=== PATIENT | male | born 1965 | race Caucasian/White ===

== ENCOUNTER 2017-02-28 23:07 | Emergency (ER) | payer MEDICAID ==
[2017-02-28 23:17] VITALS: BP 110/70
[2017-02-28] MEDS ORDERED: KETOROLAC TROMETHAMINE 60 MG/2 ML SDV IM ONE (23:47)
[2017-02-28] MEDS ORDERED: ONDANSETRON ODT 4 MG TAB (6 TAB/DSPK) PO PRN (23:47)
[2017-02-28] MEDS ORDERED: ONDANSETRON 4 MG TAB.RAPDIS PO ONE (23:47)
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
== END 2017-03-01 00:17 | disposition home or self-care (01) ==
LOC: ER 23:07
DX: M25.512 Pain in left shoulder (principal)
CPT/HCPCS: 99283; S0119

== ENCOUNTER 2018-10-06 21:37 | Emergency (ER) | payer MEDICAID ==
--- NOTE | 2018-10-07 00:07 | ER Document Report ---
ED Neck/Back Problem - General Chief Complaint: Neck and Upper Back Pain Stated Complaint: UPPER BACK PAIN Time Seen by Provider: 10/06/18 23:49 Notes: Patient is a 53-year-old male that comes to the emergency department for chief complaint of pain in his neck and upper back. He states that he was helping load a trailer when a large piece of debris came off of the trailer, he tried to catch and then lifted the debris, he states he felt a sharp pain in his neck and upper back when he did this, he states that this occurred yesterday. He states since that time he has been progressively sore. He denies any numbness or weakness, denies incontinence or urinary retention, denies any other injuries or complaints. Past medical history of type 2 diabetes, hypertension, hyperlipidemia. TRAVEL OUTSIDE OF THE [place] IN LAST 30 DAYS: No - Related Data Allergies/Adverse Reactions: Penicillins Adverse Reaction (Verified 02/28/17 23:37) Past Medical History - General Information source: Patient - Social History Smoking Status: Never Smoker Drug Abuse: None Lives with: Family Family History: Reviewed & Not Pertinent - Past Medical History Cardiac Medical History: Reports: Hx Hypertension Renal/ Medical History: Reports: Hx Kidney Stones. Denies: Hx Peritoneal Dialysis Musculoskeletal Medical History: Reports Hx Arthritis Past Surgical History: Reports: Hx Cholecystectomy, Hx Orthopedic Surgery - right shoulder - Immunizations Hx Diphtheria, Pertussis, Tetanus Vaccination: - unknown Review of Systems - Review of Systems Constitutional: No symptoms reported EENT: No symptoms reported Cardiovascular: No symptoms reported Respiratory: No symptoms reported Gastrointestinal: No symptoms reported Genitourinary: No symptoms reported Male Genitourinary: No symptoms reported Musculoskeletal: See HPI Skin: No symptoms reported Hematologic/Lymphatic: No symptoms reported Neurological/Psychological: No symptoms reported Physical Exam - Vital signs Vitals: Temp Pulse Resp BP Pulse Ox 98.1 F 87 16 169/100 H 97 10/06/18 22:26 10/06/18 22:26 10/06/18 22:26 10/06/18 22:26 10/06/18 22:26 - Notes Notes: GENERAL: Alert, interacts well, moves very stiffly and pivots to walk HEAD: Normocephalic, atraumatic. EYES: Pupils equal, round, and reactive to light. Extraocular movements intact. ENT: Oral mucosa moist, tongue midline. Oropharynx unremarkable. Airway patent. Nares patent, no nasal septal hematoma, TM's intact. NECK: Full range of motion. Supple. Trachea midline. LUNGS: Clear to auscultation bilaterally, no wheezes, rales, or rhonchi. No respiratory distress. HEART: Regular rate and rhythm. No murmur ABDOMEN: Soft, non-tender. Non-distended. Bowel sounds present in all 4 quadrants. GENITOURINARY: Deferred EXTREMITIES: Moves all 4 extremities spontaneously. No edema, normal radial and dorsalis pedis pulses bilaterally. No cyanosis. BACK: Pain over the neck generally including the midline, normal strength, normal distal neurovascular exam, has trouble raising the arms above the head because of pain in the neck/upper back. No saddle anesthesia, no signs of trauma, normal back exam otherwise. NEUROLOGICAL: Alert and oriented x3. Normal speech. [cranial nerves II through XII grossly intact]. PSYCH: Normal affect, normal mood. SKIN: Warm, dry, normal turgor. No rashes or lesions noted. Course - Re-evaluation Re-evalutation: Patient with stiff neck, limited lateral range of motion, pain over the paracervical musculature, remaining back is unremarkable. CT of the neck was performed and unremarkable with no acute findings. Patient has no neurological deficits. Suspect this is bad muscle spasm only. Provided with medications, discussed expectations, follow-up, and return precautions. Patient states understanding and agreement. - Vital Signs Vital signs: Temp Pulse Resp BP Pulse Ox 98.1 F 87 16 169/100 H 97 10/06/18 22:26 10/06/18 22:26 10/06/18 22:26 10/06/18 22:26 10/06/18 22:26 Discharge - Discharge Clinical Impression: Neck pain, Upper back pain, Muscle spasm Condition: Stable Disposition: HOME, SELF-CARE Additional Instructions: The CAT scan shows no concerning abnormality. You will be continually increasingly sore and stiff, medication as prescribed, do not combine with alcohol or other sedating medication. Apply heat to your neck and upper back, do gentle stretches, and rest. Symptoms should gradually resolve. Follow-up with primary care. Return if you worsen including numbness, inability to urinate, loss of bowel control, fever of 100.4 or greater, or any other concerning or worsening symptoms. Prescriptions: Diazepam [Valium 5 mg Tablet] 1 - 2 mg PO TID PRN #15 tablet PRN Reason: Forms: Elevated Blood Pressure
--- NOTE | 2018-10-07 01:17 | RADIOLOGY REPORT (SQ) ---
EXAM DESCRIPTION: CT CERVICAL SPINE WITHOUT IV CONTRAST COMPLETED DATE/TME: 10/07/2018 00:00 CLINICAL HISTORY: 53 years, Male, neck pain/injury This exam was performed according to our departmental dose-optimization program which includes automated exposure control, adjustment of the mA and/or kVp according to patient size and/or use of iterative reconstruction technique where applicable. FINDINGS: Vertebral body heights are intact. Alignment is intact. No subluxation. No significant prevertebral soft tissue swelling. Mild degenerative changes from C4 through C7. Facets are normally aligned. Odontoid process is intact. IMPRESSION: No fracture or subluxation.
[2018-10-07] MEDS ORDERED: HYDROCODONE/ACETAMINOPHEN 5-325 MG (6 TAB/ER DISP) PO PRN (01:26)
[2018-10-07 02:38] VITALS: BP 168/100
== END 2018-10-07 01:40 | disposition home or self-care (01) ==
LOC: ER 21:37
DX: M54.2 Cervicalgia (principal); M54.6 Pain in thoracic spine; M62.830 Muscle spasm of back; E11.9 Type 2 diabetes mellitus without complications; I10 Essential (primary) hypertension; E78.5 Hyperlipidemia, unspecified; Z88.0 Allergy status to penicillin; M19.90 Unspecified osteoarthritis, unspecified site; Z87.442 Personal history of urinary calculi; X50.0XXA Overexertion from strenuous movement or load, initial encounter; Y92.9 Unspecified place or not applicable
CPT/HCPCS: 72125; 99283

== ENCOUNTER 2019-04-13 09:11 | Day surgery (SDC) | payer MEDICAID ==
[~2019-04-13 09:11] MED LIST: PROPOFOL INJ 200 MG/20 ML VIAL IV ONE
[2019-04-13] MEDS ORDERED: PROPOFOL INJ 200 MG/20 ML VIAL IV ONE ×2 (11:17→11:30)
[2019-04-13 12:27] VITALS: BP 138/88
--- NOTE | 2019-04-13 14:35 | Operative Report ---
Operative Report DATE OF SURGERY: 04/13/19 Operative Report: The risks, benefits and alternatives of the procedure including the risk of bleeding, perforation requiring surgery have been explained to the patient in detail and informed consent has been obtained. The patient is placed in a left lateral decubital position. Timeout was called. Propofol medication is administered. Rectal examination is done which did not reveal any masses, tears or fissures. An Olympus videoscope was introduced into the patient's rectum. The scope was then carefully advanced all the way to the cecum. The cecum was identified by the usual anatomical landmarks including the ileocecal valve as well as the appendiceal office. Photodocumentation is obtained. The scope was then sequentially pulled back via the various segments of the colon including the ascending colon, hepatic flexure, transverse colon, splenic flexure, desc ending colon and finally into the rectosigmoid portions of the colon. Retroflexion maneuvers performed. PREOPERATIVE DIAGNOSIS: Colorectal cancer screening POSTOPERATIVE DIAGNOSIS: Redundancy of the colon. Ascending colon polyp was removed via biopsy forceps. Internal hemorrhoids OPERATION: Colonoscopy with biopsy SURGEON: COLE QUIROS ANESTHESIA: LMAC TISSUE REMOVED OR ALTERED: As noted above. COMPLICATIONS: None. ESTIMATED BLOOD LOSS: None. INTRAOPERATIVE FINDINGS: As noted above. PROCEDURE: Patient tolerated the procedure well. No immediate postprocedure complications are noted. Patient is discharged in good condition. Discharge date 04/13/2019. Discharge diet: Regular. Discharge activity: Regular. 2 to 3-week follow-up to discuss findings. Patient is instructed to call the office or proceed to the emergency room should there be any further questions. 3 to 5-year surveillance colonoscopy.
== END 2019-04-13 12:15 | disposition home or self-care (01) ==
LOC: END 09:11
PROVIDERS: ATTEND Internal Medicine Gastroenterology
DX: Z12.11 Encounter for screening for malignant neoplasm of colon (principal); D12.2 Benign neoplasm of ascending colon; K64.8 Other hemorrhoids; E78.5 Hyperlipidemia, unspecified; I10 Essential (primary) hypertension; F17.210 Nicotine dependence, cigarettes, uncomplicated; J45.909 Unspecified asthma, uncomplicated; J45.20 Mild intermittent asthma, uncomplicated
CPT/HCPCS: 45380; 88305 ×2; 00811; J2704; 811

== ENCOUNTER 2019-05-31 20:31 | Emergency (ER) | payer MEDICAID ==
[2019-05-31 20:43] VITALS: BP 158/85
== END 2019-05-31 22:48 | disposition left against medical advice (07) ==
LOC: ER 20:31
DX: Z53.21 Procedure and treatment not carried out due to patient leaving prior to being seen by health care provider (principal)

== ENCOUNTER 2019-06-27 20:33 | Emergency (ER) | payer MEDICAID ==
[2019-06-27] MEDS ORDERED: RINGERS SOLUTION,LACTATED 1,000 ML IV ONE ×2 (21:04→23:40)
--- NOTE | 2019-06-27 21:04 | ER Document Report ---
ED General - General Stated Complaint: BACK PAIN Time Seen by Provider: 06/27/19 20:54 Primary Care Provider: SHARLENE RAGLAND MD [EMERITUS] - 06/29/19 JV ALEXANDER MD [NO LOCAL MD] - Follow up as needed Mode of Arrival: Medic Information source: Patient, Emergency Med Personnel Notes: 53-year-old male with hypertension, arthritis, schizophrenia, PTSD presents via EMS from home with complaints of upper back pain, palpitations, dizziness. Patient states that just prior to arrival he was eating dinner when he developed pain between his shoulder blades and dizziness which he describes as feeling like he is going to pass out. Patient also reports having palpitations. Patient has had a new medication added for nightmares and hypertension recently. This is prazosin. he states he initially thought he was having indigestion but the pain persisted. Patient reports feeling nauseous yesterday but denies any nausea, vomiting, chest pain, shortness of breath, abdominal pain, diaphoresis, diarrhea, recent illness today. EMS reports that the patient was hypotensive upon their arrival. Patient admits to tobacco use, occasional alcohol use. TRAVEL OUTSIDE OF THE [place] IN LAST 30 DAYS: No - HPI Onset: Just prior to arrival Onset/Duration: Sudden Quality of pain: Throbbing Severity: Moderate Pain Level: 2 Associated symptoms: Nausea, Other - Dizziness. denies: Chest pain, Diarrhea, Fever, Headache, Vomiting, Shortness of breath, Sore throat, Sweating, Weakness Exacerbated by: Denies Relieved by: Denies Similar symptoms previously: Yes Recently seen / treated by doctor: No - Related Data Allergies/Adverse Reactions: Penicillins Adverse Reaction (Verified 04/13/19 09:27) Past Medical History - General Information source: Patient, Emergency Med Personnel, [facility] Records - Social History Smoking Status: Current Every Day Smoker Cigarette use (# per day): Yes - 15 Smoking Education Provided: Yes - Smoking cessation counseling was provided for 4 minutes at the bedside Frequency of alcohol use: Occasional Drug Abuse: None Lives with: Family Family History: Reviewed & Not Pertinent Patient has suicidal ideation: No Patient has homicidal ideation: No - Past Medical History Cardiac Medical History: Reports: Hx Hypertension Denies: Hx Coronary Artery Disease, Hx Heart Attack Pulmonary Medical History: Reports: Hx Pneumonia Denies: Hx Asthma, Hx Bronchitis, Hx COPD Neurological Medical History: Denies: Hx Cerebrovascular Accident, Hx Seizures Renal/ Medical History: Reports: Hx Kidney Stones. Denies: Hx Peritoneal Dialysis Musculoskeletal Medical History: Reports Hx Arthritis Past Surgical History: Reports: Hx Cholecystectomy, Hx Orthopedic Surgery - right shoulder - Immunizations Hx Diphtheria, Pertussis, Tetanus Vaccination: Yes - unknown Hx Pneumococcal Vaccination: 11/04/18 Review of Systems - Review of Systems Constitutional: denies: Malaise, Weakness, Weight loss, Recent illness EENT: denies: Blurred vision, Difficulty swallowing Cardiovascular: Palpitations, Dizziness Physical Exam - Vital signs Vitals: Temp 98.7 F 06/27/19 20:35 - Notes Notes: PHYSICAL EXAMINATION: GENERAL: Well-appearing, well-nourished and in no acute distress. HEAD: Atraumatic, normocephalic. EYES: Pupils equal round and reactive to light, extraocular movements intact, sclera anicteric, conjunctiva are normal. ENT: Nares patent, oropharynx clear without exudates. Moist mucous membranes. NECK: Normal range of motion, supple without lymphadenopathy LUNGS: Breath sounds clear to auscultation bilaterally and equal. No wheezes rales or rhonchi. HEART: Tachycardic, regular rhythm, no murmurs. weak radial pulse bilaterally ABDOMEN: Soft, nontender, nondistended abdomen. No guarding, no rebound. No masses appreciated. Musculoskeletal: Normal range of motion, no pitting or edema. No cyanosis. NEUROLOGICAL: Cranial nerves grossly intact. Normal speech, normal gait. Normal sensory, motor exams PSYCH: Normal mood, normal affect. SKIN: Warm, Dry, normal turgor, no rashes or lesions noted. Course - Re-evaluation Re-evalutation: Laboratory 06/27/19 06/27/19 06/27/19 20:45 20:45 20:45 WBC 12.0 H RBC 5.25 Hgb 14.6 Hct 44.5 MCV 85 MCH 27.8 MCHC 32.7 RDW 15.0 H Plt Count 255 Lymph % (Auto) 13.1 Willacy % (Auto) 4.7 Eos % (Auto) 0.9 Baso % (Auto) 0.5 Absolute Neuts (auto) 9.7 H Absolute Lymphs (auto) 1.6 Absolute Monos (auto) 0.6 Absolute Eos (auto) 0.1 Absolute Basos (auto) 0.1 Seg Neutrophils % 80.8 H PT 14.2 INR 1.10 VBG pH VBG pCO2 VBG HCO3 VBG Base Excess Sodium 135.9 L Potassium 3.7 Chloride 101 Carbon Dioxide 25 Anion Gap 10 BUN 10 Creatinine 0.97 Est GFR ( Amer) > 60 Est GFR (MDRD) Non-Af > 60 Glucose 166 H Lactic Acid Calcium 9.0 Magnesium 1.7 Total Bilirubin 0.4 Direct Bilirubin 0.3 Neonat Total Bilirubin Not Reportable Neonat Direct Bilirubin Not Reportable Neonat Indirect Bili Not Reportable AST 21 ALT 21 Alkaline Phosphatase 57 Creatine Kinase 35 L CK-MB (CK-2) Troponin I NT-Pro-B Natriuret Pep Total Protein 6.3 Albumin 3.6 Urine Color Urine Appearance Urine pH Ur Specific Lynn Urine Protein Urine Glucose (UA) Urine Ketones Urine Blood Urine Nitrite Urine Bilirubin Urine Urobilinogen Ur Leukocyte Esterase Urine WBC (Auto) Urine RBC (Auto) U Hyaline Cast (Auto) Squamous Epi Cells Auto Urine Mucus (Auto) Urine Ascorbic Acid Urine Opiates Screen Urine Methadone Screen Ur Barbiturates Screen Ur Phencyclidine Scrn Ur Amphetamines Screen U Benzodiazepines Scrn Urine Cocaine Screen U Marijuana (THC) Screen Serum Alcohol < 10 06/27/19 06/27/19 06/27/19 20:45 20:45 21:08 WBC RBC Hgb Hct MCV MCH MCHC RDW Plt Count Lymph % (Auto) Willacy % (Auto) Eos % (Auto) Baso % (Auto) Absolute Neuts (auto) Absolute Lymphs (auto) Absolute Monos (auto) Absolute Eos (auto) Absolute Basos (auto) Seg Neutrophils % PT INR VBG pH 7.37 VBG pCO2 49.6 VBG HCO3 27.9 VBG Base Excess 1.7 Sodium Potassium Chloride Carbon Dioxide Anion Gap BUN Creatinine Est GFR ( Amer) Est GFR (MDRD) Non-Af Glucose Lactic Acid 3.8 H Calcium Magnesium Total Bilirubin Direct Bilirubin Neonat Total Bilirubin Neonat Direct Bilirubin Neonat Indirect Bili AST ALT Alkaline Phosphatase Creatine Kinase CK-MB (CK-2) 0.37 Troponin I < 0.012 NT-Pro-B Natriuret Pep 47 Total Protein Albumin Urine Color Urine Appearance Urine pH Ur Specific Lynn Urine Protein Urine Glucose (UA) Urine Ketones Urine Blood Urine Nitrite Urine Bilirubin Urine Urobilinogen Ur Leukocyte Esterase Urine WBC (Auto) Urine RBC (Auto) U Hyaline Cast (Auto) Squamous Epi Cells Auto Urine Mucus (Auto) Urine Ascorbic Acid Urine Opiates Screen Urine Methadone Screen Ur Barbiturates Screen Ur Phencyclidine Scrn Ur Amphetamines Screen U Benzodiazepines Scrn Urine Cocaine Screen U Marijuana (THC) Screen Serum Alcohol 06/27/19 06/27/19 06/27/19 22:28 22:28 23:40 WBC RBC Hgb Hct MCV MCH MCHC RDW Plt Count Lymph % (Auto) Willacy % (Auto) Eos % (Auto) Baso % (Auto) Absolute Neuts (auto) Absolute Lymphs (auto) Absolute Monos (auto) Absolute Eos (auto) Absolute Basos (auto) Seg Neutrophils % PT INR VBG pH VBG pCO2 VBG HCO3 VBG Base Excess Sodium Potassium Chloride Carbon Dioxide Anion Gap BUN Creatinine Est GFR ( Amer) Est GFR (MDRD) Non-Af Glucose Lactic Acid 1.2 Calcium Magnesium Total Bilirubin Direct Bilirubin Neonat Total Bilirubin Neonat Direct Bilirubin Neonat Indirect Bili AST ALT Alkaline Phosphatase Creatine Kinase CK-MB (CK-2) Troponin I NT-Pro-B Natriuret Pep Total Protein Albumin Urine Color YELLOW Urine Appearance CLEAR Urine pH 7.0 Ur Specific Lynn 1.019 Urine Protein 30 H Urine Glucose (UA) NEGATIVE Urine Ketones NEGATIVE Urine Blood NEGATIVE Urine Nitrite NEGATIVE Urine Bilirubin NEGATIVE Urine Urobilinogen NEGATIVE Ur Leukocyte Esterase NEGATIVE Urine WBC (Auto) 2 Urine RBC (Auto) 0 U Hyaline Cast (Auto) 10 Squamous Epi Cells Auto <1 Urine Mucus (Auto) RARE Urine Ascorbic Acid NEGATIVE Urine Opiates Screen UNCONFIRMED POSITIVE Urine Methadone Screen NEGATIVE Ur Barbiturates Screen NEGATIVE Ur Phencyclidine Scrn NEGATIVE Ur Amphetamines Screen NEGATIVE U Benzodiazepines Scrn UNCONFIRMED POSITIVE Urine Cocaine Screen NEGATIVE U Marijuana (THC) Screen UNCONFIRMED POSITIVE Serum Alcohol 06/27/19 23:55 WBC RBC Hgb Hct MCV MCH MCHC RDW Plt Count Lymph % (Auto) Willacy % (Auto) Eos % (Auto) Baso % (Auto) Absolute Neuts (auto) Absolute Lymphs (auto) Absolute Monos (auto) Absolute Eos (auto) Absolute Basos (auto) Seg Neutrophils % PT INR VBG pH VBG pCO2 VBG HCO3 VBG Base Excess Sodium Potassium Chloride Carbon Dioxide Anion Gap BUN Creatinine Est GFR ( Amer) Est GFR (MDRD) Non-Af Glucose Lactic Acid Calcium Magnesium Total Bilirubin Direct Bilirubin Neonat Total Bilirubin Neonat Direct Bilirubin Neonat Indirect Bili AST ALT Alkaline Phosphatase Creatine Kinase CK-MB (CK-2) Troponin I < 0.012 NT-Pro-B Natriuret Pep Total Protein Albumin Urine Color Urine Appearance Urine pH Ur Specific Lynn Urine Protein Urine Glucose (UA) Urine Ketones Urine Blood Urine Nitrite Urine Bilirubin Urine Urobilinogen Ur Leukocyte Esterase Urine WBC (Auto) Urine RBC (Auto) U Hyaline Cast (Auto) Squamous Epi Cells Auto Urine Mucus (Auto) Urine Ascorbic Acid Urine Opiates Screen Urine Methadone Screen Ur Barbiturates Screen Ur Phencyclidine Scrn Ur Amphetamines Screen U Benzodiazepines Scrn Urine Cocaine Screen U Marijuana (THC) Screen Serum Alcohol Chest X-Ray 06/27/19 20:54 IMPRESSION: No acute abnormality is identified. Abdomen/Pelvis CTA 06/27/19 20:55 IMPRESSION: Negative for thoracic or abdominal aortic aneurysm or dissection. Perihilar groundglass opacities suggesting minor pneumonitis. Descending/sigmoid colon diverticulosis without CT evidence for diverticulitis TECHNICAL DOCUMENTATION: Quality ID # 436: Final reports with documentation of one or more dose reduction techniques (e.g., Automated exposure control, adjustment of the mA and/or kV according to patient size, use of iterative reconstruction technique) copyright 2010 [employer]- All Rights Reserved Chest/Abdomen CTA 06/27/19 20:55 IMPRESSION: Negative for thoracic or abdominal aortic aneurysm or dissection. Perihilar groundglass opacities suggesting minor pneumonitis. Descending/sigmoid colon diverticulosis without CT evidence for diverticulitis TECHNICAL DOCUMENTATION: Quality ID # 436: Final reports with documentation of one or more dose reduction techniques (e.g., Automated exposure control, adjustment of the mA and/or kV according to patient size, use of iterative reconstruction technique) copyright 2010 [employer]- All Rights Reserved Temp Pulse Resp BP Pulse Ox 98.7 F 18 128/73 H 96 06/27/19 20:35 06/28/19 01:31 06/28/19 01:31 06/28/19 01:31 53-year-old male presents via EMS with complaint of upper back pain, dizziness and palpitations that started just prior to arrival. EMS reports patient was hypotensive with a blood pressure of 70/50 upon their arrival. Patient did receive fentanyl prior to arrival to the emergency department. Blood pressure upon arrival is 92/50. IV fluids were administered and patient's blood pressure did improve. CBC is without leukocytosis or anemia. CMP shows hyperglycemia without evidence of DKA. Cardiac enzymes including delta troponin were within normal limits. Urine drug screen is positive for benzodiazepines, marijuana, opiates. Patient adamantly denies history of benzodiazepine use. Patient's lactate was 3.8 this resolved and is 1.2 prior to discharge. CTA of the chest abdomen and pelvis is significant for pneumonitis. No evidence of dissection, PE. 06/28/19 01:15 Family now at the bedside and brother states that he believes that his brother may have accidentally taken either too much of his own medication or accidentally took 1 of his parents medication. He states that there is over 30 bottles of medications between the 3 of them and that the patient is in charge of them. Patient reports improvement of his pain. Repeat lactate within normal limits. Patient is on 3 different blood pressure medications. He was advised to hold these medications until he had a blood pressure reading with a systolic blood pressure over 140. Patient also advised to follow-up with his primary care physician for review of his medications. He states that his psychiatrist gave him a medication for nightmares but also lowers blood pressure. I think his hypotension is likely due to either too many blood pressure medications or medication error. Patient is orthostatic negative. 06/28/19 01:27 Repeat blood pressure upon discharge is 118/60. 06/28/19 03:52 Patient's new medication prazosin has the adverse effects of dizziness, palpitations and hypotension. This added to his 2 other blood pressure medications and possible accidental ingestion of benzodiazepine is likely the patient's cause for hypotension and dizziness. Patient is ambulating without difficulty. He is comfortable with discharge home. He was provided copies of his imaging and lab work that were performed today. Advised to follow-up with his primary care physician on Saturday and to hold his blood pressure medications for any systolic blood pressure lower than 140. Patient was evaluated and treated as appropriate for the patient's presenting symptoms and complaint, with consideration of any critical or life threatening conditions that may be associated with their obtained history and exam as noted above. All results were discussed with patient and his family who is at the bedside. Patient provided the opportunity to ask questions, and express concerns. Patient was educated on treatments based on their presumed diagnosis as noted above. At this time we will discharge the patient with return precautions and follow-up recommendations. Verbal discharge instructions given a the bedside. Medication warnings reviewed. Patient is in agreement with this plan and has verbalized understanding of return precautions. After careful consideration I feel that that patient can be safely discharged from the emergency department, they were advised to followup with a primary care physician in 2-3 days. Dictation on this chart was performed using voice recognition software and may result in unintended grammatical, spelling, syntax or errors. - Vital Signs Vital signs: Temp Pulse Resp BP Pulse Ox 98.7 F 18 128/73 H 96 06/27/19 20:35 06/28/19 01:31 06/28/19 01:31 06/28/19 01:31 - Laboratory Result Diagrams: 06/27/19 20:45 06/27/19 20:45 Laboratory results interpreted by me: 06/27/19 06/27/19 06/27/19 20:45 20:45 20:45 WBC 12.0 H RDW 15.0 H Absolute Neuts (auto) 9.7 H Seg Neutrophils % 80.8 H Sodium 135.9 L Glucose 166 H Lactic Acid 3.8 H Creatine Kinase 35 L Urine Protein 06/27/19 22:28 WBC RDW Absolute Neuts (auto) Seg Neutrophils % Sodium Glucose Lactic Acid Creatine Kinase Urine Protein 30 H - Diagnostic Test Radiology reviewed: Image reviewed, Reports reviewed - EKG Interpretation by Me EKG shows normal: Sinus rhythm Rate: Tachycardia Rhythm: NSR - Prolonged QTC Discharge - Discharge Clinical Impression: Pneumonitis, Tobacco use Hypotension Qualifiers: Hypotension type: hypotension due to drug Qualified Code(s): I95.2 - H ypotension due to drugs Back pain Qualifiers: Back pain location: thoracic back pain Chronicity: acute Back pain laterality: bilateral Qualified Code(s): M54.6 - Pain in thoracic spine Medication administered in error Qualifiers: Encounter type: initial encounter Injury intent: accidental or unintentional Qualified Code(s): T50.901A - Poisoning by unspecified drugs, medicaments and biological substances, accidental (unintentional), initial encounter Condition: Good Disposition: HOME, SELF-CARE Instructions: Dizziness ([facility]), Muscle Strain ([facility]), Palpitations (Irregular or Rapid Heartrate) ([facility]) Additional Instructions: You are on 3 different medications that can lower your blood pressure. Please hold any blood pressure medication unless you have a systolic blood pressure (top number) over 140. Please return to the emergency department if you experience chest pain, shortness of breath, dizziness or any other symptoms concerning to you. The medications I am speaking of our your prazosin, hydrochlorothiazide and telmisartan. Follow up with your [id number] hours for further care or return to the ED IMMEDIATELY if symptoms worsen or you have any concerns. If you cannot afford to follow up with your primary care physician a list of low cost clinics have been provided at the end of your discharge papers as well. Most prescribed medications have multiple side effects. The safest thing to do is when filling your prescription speak to your pharmacist regarding possible interactions with your normal home medications and over the counter medications such as Ibuprofen, Tylenol, Benadryl. If you experience any symptoms that cause you discomfort or concern you should discontinue the medication immediately and return to the emergency room or call your primary care physician. Forms: Smoking Cessation Education Referrals: JV ALEXANDER MD [NO LOCAL MD] - Follow up as needed SHRALENE RAGLAND MD [EMERITUS] - 06/29/19
[2019-06-27 21:10] LABS: ABSOLUTE BASOPHILS # (AUTO) 0.1 10^3/uL (0.0-0.2); ABSOLUTE EOSINOPHILS # (AUTO) 0.1 10^3/uL (0.0-0.6); ABSOLUTE LYMPHOCYTES (AUTO) 1.6 10^3/uL (0.5-4.7); ABSOLUTE MONOCYTES (AUTO) 0.6 10^3/uL (0.1-1.4); ABSOLUTE NEUT (AUTO) 9.7 10^3/uL (1.7-8.2); BASOPHILS % (AUTO) 0.5 % (0-2); EOSINOPHILS % (AUTO) 0.9 % (0-6); HEMATOCRIT 44.5 % (37.9-51.0); HEMOGLOBIN 14.6 g/dL (13.5-17.0); LYMPHOCYTES % (AUTO) 13.1 % (13-45); MEAN CORPUSCULAR HEMOGLOBIN 27.8 pg (27.0-33.4); MEAN CORPUSCULAR HGB CONC 32.7 g/dL (32.0-36.0); MEAN CORPUSCULAR VOLUME 85 fl (80-97); MONOCYTES % (AUTO) 4.7 % (3-13); PLATELET COUNT 255 10^3/uL (150-450); RED BLOOD COUNT 5.25 10^6/uL (4.35-5.55); SEGMENTED NEUTROPHILS % (AUTO) 80.8 % (42-78); TOTAL CELLS COUNTED % (AUTO) 100 %
[2019-06-27 21:16] LABS: PROTHROMBIN TIME 14.2 SEC (11.4-15.4)
[2019-06-27 21:27] LABS: VENOUS BLOOD BASE EXCESS 1.7 mmol/L; VENOUS BLOOD HCO3 27.9 mmol/L (20-32); VENOUS BLOOD PCO2 49.6 mmHg (35-63); VENOUS BLOOD PH 7.37 (7.30-7.42)
[2019-06-27 21:32] LABS: ALBUMIN 3.6 g/dL (3.5-5.0); ALKALINE PHOSPHATASE 57 U/L (38-126); ANION GAP 10 (5-19); ASPARTATE AMINO TRANSFERASE 21 U/L (17-59); BILIRUBIN,DIRECT 0.3 mg/dL (0.0-0.4); BILIRUBIN,TOTAL 0.4 mg/dL (0.2-1.3); BLOOD UREA NITROGEN 10 mg/dL (7-20); CARBON DIOXIDE 25 mmol/L (22-30); CHLORIDE 101 mmol/L (98-107); CREATINE KINASE 35 U/L (55-170); GLUCOSE 166 mg/dL (75-110); POTASSIUM 3.7 mmol/L (3.6-5.0); TOTAL PROTEIN 6.3 g/dL (6.3-8.2)
[2019-06-27 21:33] LABS: ALCOHOL < 10 mg/dL (NONE DETECTED)
[2019-06-27 21:42] LABS: CREATINE KINASE MB 0.37 ng/mL (<4.55); NT PRO BNP 47 pg/mL (5-900); TROPONIN I < 0.012 ng/mL
--- NOTE | 2019-06-27 22:11 | RADIOLOGY REPORT (SQ) ---
EXAM DESCRIPTION: XR CHEST 1 VIEW COMPLETED DATE/TME: 06/27/2019 20:54 CLINICAL HISTORY: 53 years Male Upper back pain history of hypertension COMPARISON: None. FINDINGS: The cardiomediastinal silhouette appears unremarkable. No consolidating infiltrates or pleural effusions. No pneumothorax. IMPRESSION: No acute abnormality is identified.
--- NOTE | 2019-06-27 22:52 | RADIOLOGY REPORT (SQ) ---
EXAM DESCRIPTION: CT ABDOMEN PELVIS WITHOUT THEN WITH IV CONTRAST, CT CHEST ANGIOGRAPHY WITHOUT THEN WITH IV CONTRAST COMPLETED DATE/TME: 06/27/2019 20:55 CLINICAL HISTORY: 53 years, Male, Chest pain, back pain COMPARISON: 06/29/2016 CT abdomen/pelvis TECHNIQUE: [id number] Images stored on PACS. All CT scanners at this facility use dose modulation, iterative reconstruction, and/or weight based dosing when appropriate to reduce radiation dose to as low as reasonably achievable (ALARA). Axial images with coronal and sagittal MIPS reconstructions [facility]: Dose Right [facility]: CareDose [facility]: Dose Right [facility]: Teradose 4D [facility]: Smart [employer] LIMITATIONS: None. FINDINGS: CTA chest: The visualized thyroid gland enhances normally. There is very little opacification of the pulmonary arterial tree. No evidence for large or central pulmonary embolus. Negative for thoracic aortic aneurysm or dissection. No mediastinal or hilar adenopathy. The heart and pericardium are unremarkable. Multiple old left rib fractures. Osseous structures are otherwise grossly intact. No pneumothorax. The visualized airways are patent. Perihilar groundglass opacities bilaterally suggesting minor pneumonitis. No effusion. CTA abdomen/pelvis: Osseous structures of the abdomen/pelvis show degenerative changes of the lumbar spine. Evaluation of solid visceral organs is limited due to phase of contrast. However, the liver, spleen, adrenal glands, pancreas, kidneys are unremarkable. Surgical absence of the gallbladder. The celiac axis, superior mesenteric artery, inferior mesenteric artery are widely patent. Widely patent renal arteries bilaterally. Negative for abdominal aortic aneurysm or dissection. Atheromatous changes of the distal abdominal aorta and common iliac arteries bilaterally. The vessels are otherwise patent. The internal, external iliac arteries are patent. The bilateral common femoral and visualized superficial femoral arteries are patent. Descending and sigmoid colon diverticulosis without CT evidence for diverticulitis. Abundant stool in the colon. Normal appendix. No free air or free fluid. IMPRESSION: Negative for thoracic or abdominal aortic aneurysm or dissection. Perihilar groundglass opacities suggesting minor pneumonitis. Descending/sigmoid colon diverticulosis without CT evidence for diverticulitis TECHNICAL DOCUMENTATION: Quality ID # 436: Final reports with documentation of one or more dose reduction techniques (e.g., Automated exposure control, adjustment of the mA and/or kV according to patient size, use of iterative reconstruction technique) copyright 2011 [employer]- All Rights Reserved
[2019-06-27 23:11] LABS: APPEARANCE,URINE CLEAR; BILIRUBIN,URINE NEGATIVE (NEGATIVE); COLOR,URINE YELLOW; GLUCOSE, URINE NEGATIVE (NEGATIVE); KETONES,URINE NEGATIVE (NEGATIVE); LEUKOCYTE ESTERASE,URINE NEGATIVE (NEGATIVE); NITRITE,URINE NEGATIVE (NEGATIVE); PROTEIN,URINE 30 mg/dL (NEGATIVE); URINE SPECIFIC GRAVITY 1.019; UROBILINOGEN,URINE NEGATIVE mg/dL (<2.0)
[2019-06-27 23:23] LABS: URINE AMPHETAMINES SCREEN NEGATIVE; URINE BARBITURATES SCREEN NEGATIVE; URINE BENZODIAZEPINES SCREEN UNCONFIRMED POSITIVE; URINE COCAINE SCREEN NEGATIVE; URINE MARIJUANA (THC) SCREEN UNCONFIRMED POSITIVE; URINE METHADONE SCREEN NEGATIVE; URINE PHENCYCLIDINE SCREEN NEGATIVE
[2019-06-27] MEDS ORDERED: KETOROLAC TROMETHAMINE INJ/PF 30 MG/1 ML SDV IV ONE (23:53)
[2019-06-28 01:34] VITALS: BP 128/73
--- NOTE | 2019-06-28 09:28 | EKG REPORT ---
SEVERITY:- BORDERLINE ECG - SINUS TACHYCARDIA BORDERLINE PROLONGED QT INTERVAL : Confirmed by: Anna Easton MD 28-Jun-2019 09:28:30
== END 2019-06-28 01:47 | disposition home or self-care (01) ==
LOC: ER 20:33
DX: J18.9 Pneumonia, unspecified organism (principal); T50.901A Poisoning by unspecified drugs, medicaments and biological substances, accidental (unintentional), initial encounter; M54.9 Dorsalgia, unspecified; R42 Dizziness and giddiness; M54.6 Pain in thoracic spine; I95.2 Hypotension due to drugs; X58.XXXA Exposure to other specified factors, initial encounter; F17.210 Nicotine dependence, cigarettes, uncomplicated; I10 Essential (primary) hypertension; Z90.49 Acquired absence of other specified parts of digestive tract; Z87.442 Personal history of urinary calculi
CPT/HCPCS: 93005; 36415; 87040; 87086; 82553; 80307 ×2; 82550; 83735; 85025; 85610; 80053; 81001; 84484; 82803; 83605; 83880; 71045; 71275; 74174; 93010; J1885; J7120 ×2; 96361; 96374; 99285; 99406

== ENCOUNTER 2020-02-21 18:34 | Emergency (ER) | payer MEDICAID ==
--- NOTE | 2020-02-21 18:51 | ER Document Report ---
ED Medical Screen (RME) - General Chief Complaint: Pain All Over Stated Complaint: MUSCLE, JOINT PAIN Primary Care Provider: MARICHUY EVANS PA-C [Primary Care Provider] - Follow up as needed Notes: Patient is a 54-year-old white male with a past medical history of obesity, uncontrolled hypertension and psoriatic arthritis who presents to the emergency department the chief complaint of aches and pains all over in his joints from the arthritis. He does not see a doctor and is not being treated with any medications. He states his been going through a lot of stress lately and has just been feeling really weak and rundown recently. He states he was finally convinced by his family to come today for evaluation. He denies any chest pain or headache. No blurry vision or dizziness. I have treated and performed a rapid initial assessment of this patient. A comprehensive ED assessment and evaluation of the patient, analysis of test results and completion of medical decision making process will be conducted by additional ED providers. PHYSICAL EXAMINATION: GENERAL: Well-appearing, well-nourished and in no acute distress. A&Ox4. Answers questions appropriately. TRAVEL OUTSIDE OF THE [place] IN LAST 30 DAYS: No - Related Data Allergies/Adverse Reactions: Penicillins Adverse Reaction (Verified 04/13/19 09:27) Past Medical History - Past Medical History Cardiac Medical History: Reports: Hx Hypertension Denies: Hx Coronary Artery Disease, Hx Heart Attack Pulmonary Medical History: Reports: Hx Pneumonia Denies: Hx Asthma, Hx Bronchitis, Hx COPD Neurological Medical History: Denies: Hx Cerebrovascular Accident, Hx Seizures Renal/ Medical History: Reports: Hx Kidney Stones. Denies: Hx Peritoneal Dialysis Musculoskeltal Medical History: Reports Hx Arthritis Past Surgical History: Reports: Hx Cholecystectomy, Hx Orthopedic Surgery - right shoulder - Immunizations Hx Diphtheria, Pertussis, Tetanus Vaccination: Yes - unknown Physical Exam - Vital signs Vitals: Temp Pulse Resp BP Pulse Ox 99.3 F 88 18 212/119 H 96 02/21/20 18:39 02/21/20 18:39 02/21/20 18:39 02/21/20 18:39 02/21/20 18:39 Course - Vital Signs Vital signs: Temp Pulse Resp BP Pulse Ox 99.3 F 88 18 212/119 H 96 02/21/20 18:39 02/21/20 18:39 02/21/20 18:39 02/21/20 18:39 02/21/20 18:39 Doctor's Discharge - Discharge Referrals: MARICHUY EVANS PA-C [Primary Care Provider] - Follow up as needed
[2020-02-21 19:31] LABS: ABSOLUTE EOSINOPHILS # (AUTO) 0.1 10^3/uL (0.0-0.6); ABSOLUTE LYMPHOCYTES (AUTO) 1.6 10^3/uL (0.5-4.7); ABSOLUTE MONOCYTES (AUTO) 0.5 10^3/uL (0.1-1.4); ABSOLUTE NEUT (AUTO) 8.8 10^3/uL (1.7-8.2); BASOPHILS % (AUTO) 0.4 % (0-2); EOSINOPHILS % (AUTO) 1.3 % (0-6); HEMATOCRIT 43.6 % (37.9-51.0); LYMPHOCYTES % (AUTO) 14.4 % (13-45); MEAN CORPUSCULAR HGB CONC 34.4 g/dL (32.0-36.0); MEAN CORPUSCULAR VOLUME 84 fl (80-97); MONOCYTES % (AUTO) 4.8 % (3-13); PLATELET COUNT 281 10^3/uL (150-450); RED BLOOD COUNT 5.17 10^6/uL (4.35-5.55); RED CELL DISTRIBUTION WIDTH 14.5 % (11.5-14.0); SEGMENTED NEUTROPHILS % (AUTO) 79.1 % (42-78); TOTAL CELLS COUNTED % (AUTO) 100 %; WHITE BLOOD COUNT 11.1 10^3/uL (4.0-10.5)
[2020-02-21 19:48] LABS: ALKALINE PHOSPHATASE 64 U/L (38-126); ANION GAP 9 (5-19); ASPARTATE AMINO TRANSFERASE 21 U/L (17-59); BILIRUBIN,TOTAL 0.3 mg/dL (0.2-1.3); BLOOD UREA NITROGEN 13 mg/dL (7-20); CALCIUM 9.1 mg/dL (8.4-10.2); CARBON DIOXIDE 25 mmol/L (22-30); CHLORIDE 105 mmol/L (98-107); GLUCOSE 104 mg/dL (75-110); POTASSIUM 3.8 mmol/L (3.6-5.0); TOTAL PROTEIN 7.1 g/dL (6.3-8.2)
[2020-02-21] MEDS ORDERED: IBUPROFEN 600 MG TABLET PO ONE (19:48)
--- NOTE | 2020-02-21 20:23 | ER Document Report ---
ED General - General Chief Complaint: General Weakness Stated Complaint: MUSCLE, JOINT PAIN Time Seen by Provider: 02/21/20 19:23 Primary Care Provider: MARICHUY EVANS PA-C [NO LOCAL MD] - Follow up as needed Notes: HPI: 54-year-old male that presents today stating some increased joint pain for the last few weeks. Patient has bad psoriatic arthritis. He has not seen his primary care physician for an extensive period of time. Patient used to be on immunosuppressive medications but he states his insurance would not allow it and he cannot afford it given that he is on Medicare. Patient on my examination denies any and all fevers, runny nose, congestion, or cough above his baseline "smoker's cough". He denies any chest pain, abdominal pain, calf pain or leg swelling. Patient states he has not taken his blood pressure medications for a few months. He states that because he was on "so many" that he states he was seen in the emergency department 2 months ago secondary to a transient episode of low blood pressure and therefore discontinued his medications. He has not yet followed up with his primary care physician regarding this. He again however denies any chest pain, leg swelling, and also denies any headache or blurry vision. Patient does state however for the last few days that he has just been "very fatigued". ROS: See HPI All other review of systems reviewed and otherwise negative Reviewed vital signs and nursing note as charted by RN. PHYSICAL EXAM: CONSTITUTIONAL: Alert and oriented and responds appropriately to questions. Well-appearing; well-nourished HEAD: Normocephalic; atraumatic EYES: PERRL ENT: Normal nose; no rhinorrhea; moist mucous membranes; pharynx without lesions noted NECK: Supple without meningismus; non-tender; no cervical lymphadenopathy, no masses CARD: Regular rate and rhythm; no murmurs; symmetric distal pulses RESP: Normal chest excursion without splinting or tachypnea; breath sounds clear and equal bilaterally; no wheezes, no rhonchi, no rales ABD/GI: Normal bowel sounds; non-distended; soft, non-tender BACK: The back appears normal and is non-tender to palpation EXT: Normal ROM in all joints; patient has obvious psoriatic lesions to bilateral elbows, and the knuckles of the hands. No obvious acute swollen or erythematous joints SKIN: See above NEURO: CN 2-12 intact; 5/5 bilateral upper and lower extremity strength with sensation intact to light touch PSYCH: The patient's mood and manner are appropriate. Grooming and personal hygiene are appropriate. TRAVEL OUTSIDE OF THE [place] IN LAST 30 DAYS: No - Related Data Allergies/Adverse Reactions: Penicillins Adverse Reaction (Verified 04/13/19 09:27) Past Medical History - Social History Smoking Status: Current Every Day Smoker Family History: Reviewed & Not Pertinent Patient has suicidal ideation: No Patient has homicidal ideation: No - Past Medical History Cardiac Medical History: Reports: Hx Hypertension Denies: Hx Coronary Artery Disease, Hx Heart Attack Pulmonary Medical History: Reports: Hx Pneumonia Denies: Hx Asthma, Hx Bronchitis, Hx COPD Neurological Medical History: Denies: Hx Cerebrovascular Accident, Hx Seizures Renal/ Medical History: Reports: Hx Kidney Stones. Denies: Hx Peritoneal Dialysis Musculoskeletal Medical History: Reports Hx Arthritis Past Surgical History: Reports: Hx Cholecystectomy, Hx Orthopedic Surgery - right shoulder - Immunizations Hx Diphtheria, Pertussis, Tetanus Vaccination: Yes - unknown Hx Pneumococcal Vaccination: 11/04/18 Physical Exam - Vital signs Vitals: Temp Pulse Resp BP Pulse Ox 99.3 F 88 18 212/119 H 96 02/21/20 18:39 02/21/20 18:39 02/21/20 18:39 02/21/20 18:39 02/21/20 18:39 Course - Re-evaluation Re-evalutation: Given the above history and physical, we will obtain basic labs including a creatinine and potassium as I believe I will need to restart the patient's blood pressure medications. Given the patient's hesitancy I most likely will start the patient on 1 initial blood pressure medication and help the patient to follow-up with his primary doctor. Regarding the patient's joint pain with the extensive psoriatic lesions that are present, I do believe NSAIDs would be beneficial for the patient if his creatinine and potassium are within normal limits. I do believe that the patient needs further expert follow-up with possibly dermatology and possibly a payment social service plan to help her for the medications that he needs. Patient denies any headache, chest pain, lower extremity swelling, consistent with hypertensive emergency. 02/21/20 20:22 Initial labs as recorded. 02/21/20 20:44 Labs as recorded. I did review the patient's previous visit in June when the patient did have some lightheadedness, dizziness, and palpitations. He was recently at that time placed on the third blood pressure medication, prazosin, secondary to high blood pressure nightmares. Benzodiazepines were also positive and the patient possibly had ingested a benzodiazepine at that time. He has not been taking any medication since that time. Labs as recorded with a normal troponin. X-ray of the chest as recorded. - Vital Signs Vital signs: Temp Pulse Resp BP Pulse Ox 99.3 F 88 17 162/96 H 96 02/21/20 18:39 02/21/20 18:39 02/21/20 20:01 02/21/20 20:01 02/21/20 20:01 - Laboratory Result Diagrams: 02/21/20 19:15 02/21/20 19:15 Laboratory results interpreted by me: 02/21/20 19:15 WBC 11.1 H RDW 14.5 H Absolute Neuts (auto) 8.8 H Seg Neutrophils % 79.1 H Discharge - Discharge Clinical Impression: Elevated blood pressure reading Joint pain Qualifiers: Joint pain location: unspecified Qualified Code(s): M25.50 - Pain in unspecified joint Condition: Good Disposition: HOME, SELF-CARE Additional Instructions: Come back immediately for any increased pain, joint swelling, fever, chest pain, headache, leg swelling, weakness or numbness, or any other acute problems. Please take 600 mg of ibuprofen every 6 hours as well as a small tablet of Vicodin as needed every 8 hours. Please follow-up with your primary care physician and start taking the 1 blood pressure medication that we have provided with reassessment by your primary doctor. Prescriptions: Hydrocodone/Acetaminophen [[place] 5-325 mg Tablet] 1 tab PO Q8 #10 tablet Hydrocodone/Acetaminophen [[place] 5-325 mg Tablet] 1 tab PO Q8 #10 tablet Amlodipine Besylate [Norvasc 5 mg Tablet] 5 mg PO DAILY #30 tablet Referrals: MARICHUY EVANS PA-C [NO LOCAL MD] - Follow up as needed
[2020-02-21] MEDS ORDERED: AMLODIPINE BESYLATE 5 MG TABLET PO ONE (20:49)
[2020-02-21] MEDS ORDERED: HYDROCODONE/ACETAMINOPHEN 5-325 MG TABLET PO ONE (20:50)
--- NOTE | 2020-02-21 21:42 | RADIOLOGY REPORT (SQ) ---
EXAM DESCRIPTION: X-RAY CHEST- One View CLINICAL HISTORY: Chest pain COMPARISON: None available TECHNIQUE: Single view of the chest. FINDINGS: Overlying EKG leads. There are no discrete air space infiltrates, pneumothoraces or pleural effusions. The pulmonary vascularity is normal. The cardiomediastinal silhouette is normal in size. The osseous structures are stable in appearance. IMPRESSION: There are no acute lung parenchymal findings.
[2020-02-21 21:47] VITALS: BP 150/96
--- NOTE | 2020-02-22 06:27 | EKG REPORT ---
SEVERITY:- NORMAL ECG - SINUS RHYTHM : Confirmed by: Jose Mccracken MD 22-Feb-2020 06:26:36
== END 2020-02-21 21:30 | disposition home or self-care (01) ==
LOC: ER 18:34
DX: I10 Essential (primary) hypertension (principal); M25.50 Pain in unspecified joint; F17.200 Nicotine dependence, unspecified, uncomplicated; R53.1 Weakness; Z87.442 Personal history of urinary calculi; Z90.49 Acquired absence of other specified parts of digestive tract; Z88.0 Allergy status to penicillin; Z91.14 Patient's other noncompliance with medication regimen
CPT/HCPCS: 93005; 99284; 36415; 85025; 80053; 84484; 71045; 93010; J3490 ×2

== ENCOUNTER 2020-02-29 22:32 | Emergency (ER) | payer MEDICAID ==
[2020-02-29] MEDS ORDERED: ACETAMINOPHEN 325 MG TABLET PO ONE (23:49)
[2020-02-29] MEDS ORDERED: LIDOCAINE 2% VISCOUS SOLN 15 ML UDCUP PO ONE (23:49)
[2020-02-29] MEDS ORDERED: IBUPROFEN 600 MG TABLET PO ONE (23:49)
[2020-02-29] MEDS ORDERED: CLINDAMYCIN HCL 150 MG CAPSULE PO ONE (23:51)
--- NOTE | 2020-03-01 00:03 | ER Document Report ---
HPI - HPI Patient complains to provider of: dental pain Time Seen by Provider: 02/29/20 23:01 Pain Level: 2 Context: 54-year-old male with psoriatic arthritis presents emergency department with right-sided dental pain. Patient states that he has swelling and significant pain to his lower jaw on the buccal aspect. Patient does wear partial dentures and has very poor dentition. Patient denies fevers or chills, denies nausea or vomiting, denies trismus, is able to open his mouth. Denies any neck stiffness, denies shortness of breath or difficulty ventilating. No other complaints - CONSTITUTIONAL Constitutional: DENIES: Fever - EENT EENT: DENIES: Sore Throat, Ear Pain, Eye problems - CARDIOVASCULAR Cardiovascular: DENIES: Chest pain - RESPIRATORY Respiratory: DENIES: Trouble Breathing, Coughing - GASTROINTESTINAL Gastrointestinal: DENIES: Abdominal Pain, Black / Bloody Stools - URINARY Urinary: DENIES: Dysuria, Urgency, Frequency - REPRODUCTIVE Reproductive: DENIES: : Past Medical History - Social History Smoking Status: Unknown if Ever Smoked Family History: Reviewed & Not Pertinent Patient has suicidal ideation: No Patient has homicidal ideation: No - Past Medical History Cardiac Medical History: Reports: Hx Hypertension Denies: Hx Coronary Artery Disease, Hx Heart Attack Pulmonary Medical History: Reports: Hx Pneumonia Denies: Hx Asthma, Hx Bronchitis, Hx COPD Neurological Medical History: Denies: Hx Cerebrovascular Accident, Hx Seizures Renal/ Medical History: Reports: Hx Kidney Stones. Denies: Hx Peritoneal Dialysis Musculoskeletal Medical History: Reports Hx Arthritis Past Surgical History: Reports: Hx Cholecystectomy, Hx Orthopedic Surgery - right shoulder - Immunizations Hx Diphtheria, Pertussis, Tetanus Vaccination: Yes - unknown Hx Pneumococcal Vaccination: 11/04/18 Vertical Provider Document - CONSTITUTIONAL Notes: PHYSICAL EXAMINATION: Reviewed vital signs and charting by RN GENERAL: Alert, interacts well. No acute distress. HEAD: Normocephalic, atraumatic. EYES: Pupils equal and round. Extraocular movements intact. ENT: Oral mucosa moist, tongue midline. Poor dentition with numbers 23 and 26 teeth with caries and loose. No purulent discharge from the right lower jaw, mild edema not extending into the neck or deep spaces, no trismus as patient is able to open his mouth. NECK: Full range of motion. Trachea midline. EXTREMITIES: Moves all 4 extremities spontaneously. No edema, No cyanosis. PSYCH: Normal affect, normal mood. SKIN: Warm, dry, normal turgor. No rashes or lesions noted. - INFECTION CONTROL TRAVEL OUTSIDE OF THE [place] IN LAST 30 DAYS: No Course - Re-evaluation Re-evalutation: 03/01/20 00:12 Presentation is most consistent with likely an infected tooth. Airway is patent. Vitals within normal limits. Patient is able swallow without any difficulty. There is no significant facial swelling. No evidence of Luis Fernando angina, apical abscess, or airway obstruction. Patient will be started on antibiotics. I've instructed to follow-up with dentistry as earliest ability for definitive management. At this time will discharge with return precautions and follow-up recommendations. Verbal discharge instructions given a the bedside and opportunity for questions given. Medication warnings reviewed. Patient is in agreement with this plan and has verbalized understanding of return precautions and the need for primary care follow-up in the next 24-72 hours. - Vital Signs Vital signs: Temp Pulse Resp BP Pulse Ox 98.1 F 96 16 156/101 H 99 02/29/20 22:38 02/29/20 22:38 02/29/20 22:38 02/29/20 22:38 02/29/20 22:38 Discharge - Discharge Clinical Impression: Dental infection, Pain, dental, Psoriatic arthritis Condition: Good Disposition: HOME, SELF-CARE Additional Instructions: You have been seen for dental pain. It is very important that you follow-up with a dentist for definitive care. Please return if you develop fever greater than 101, swelling in your face, vomiting, difficulty breathing or swallowing, or any other symptoms that are concerning to you. For pain you should take ibuprofen 600 mg every 6 hours. You have been given a prescription for clindamycin. He should take 3 capsules 3 times per day for 7 days. Please try to obtain dental care as soon as possible. Prescriptions: Clindamycin HCl [Cleocin 150 mg Capsule] 300 mg PO Q8H 7 Days #56 capsule Naproxen 500 mg PO Q12H #60 tablet.
[2020-03-01] MEDS ORDERED: HYDROCODONE/ACETAMINOPHEN 5-325 MG (6 TAB/ER DISP) PO PRN (00:45)
[2020-03-01 00:49] VITALS: BP 161/92
== END 2020-03-01 00:51 | disposition home or self-care (01) ==
LOC: ER 22:32
DX: K02.9 Dental caries, unspecified (principal); K08.89 Other specified disorders of teeth and supporting structures; L40.50 Arthropathic psoriasis, unspecified; I10 Essential (primary) hypertension; Z97.2 Presence of dental prosthetic device (complete) (partial); K04.7 Periapical abscess without sinus
CPT/HCPCS: 99282; J3490 ×4

== ENCOUNTER 2020-04-30 14:14 | Emergency (ER) | payer MEDICAID ==
--- NOTE | 2020-04-30 16:05 | ER Document Report ---
ED General - General Chief Complaint: General Weakness Stated Complaint: WEAKNESS/BODY ACHES/RASH Notes: Patient is a 54-year-old white male with a past medical history of morbid obesity, psoriatic arthritis and COPD who is still a current everyday smoker who presents to the emergency department with a chief complaint of generalized weakness for the past 2 weeks. The patient reports that he is been under a lot of stress lately. He reports his father about 3 months ago he is been helping take care of his mother and that his son does not come around anymore. He admits to some bouts of anxiety but reports feeling Sullen. States that he needs to help his mother but he just does not feel like it. Patient reports he was on medicines for psoriatic arthritis in the past and was feeling great but due to the cost his insurance stopped the medication. He reports no chest pain or shortness of breath. No lower extremity pain or swelling. No worsening coug h. No hemoptysis. No fevers, chills or night sweats. No sudden weight gain or loss. No change in appetite. No thoughts of suicide or homicide. TRAVEL OUTSIDE OF THE [place] IN LAST 30 DAYS: No - Related Data Allergies/Adverse Reactions: Penicillins Adverse Reaction (Verified 04/13/19 09:27) Past Medical History - Social History Smoking Status: Current Every Day Smoker Chew tobacco use (# tins/day): No Frequency of alcohol use: Social Drug Abuse: None Family History: Reviewed & Not Pertinent Patient has homicidal ideation: No - Past Medical History Cardiac Medical History: Reports: Hx Hypertension Denies: Hx Coronary Artery Disease, Hx Heart Attack Pulmonary Medical History: Reports: Hx Pneumonia Denies: Hx Asthma, Hx Bronchitis, Hx COPD Neurological Medical History: Denies: Hx Cerebrovascular Accident, Hx Seizures Renal/ Medical History: Reports: Hx Kidney Stones. Denies: Hx Peritoneal Dialysis Musculoskeletal Medical History: Reports Hx Arthritis Past Surgical History: Reports: Hx Cholecystectomy, Hx Orthopedic Surgery - right shoulder - Immunizations Hx Diphtheria, Pertussis, Tetanus Vaccination: Yes - unknown Hx Pneumococcal Vaccination: 11/04/18 Review of Systems - Review of Systems Constitutional: Weakness Neurological/Psychological: Depression -: Yes All other systems reviewed and negative Physical Exam - Vital signs Vitals: Temp Pulse Resp BP Pulse Ox 98.1 F 88 18 152/105 H 96 04/30/20 15:58 04/30/20 15:58 04/30/20 15:58 04/30/20 15:58 04/30/20 15:58 - General General appearance: Appears well, Alert In distress: None - HEENT Head: Normocephalic, Atraumatic Eyes: Normal Conjunctiva: Normal Extraocular movements intact: Yes Pupils: PERRL Ears: Normal External canal: Normal Tympanic membrane: Normal Nasal: Normal Pharynx: Normal Neck: Normal - Respiratory Respiratory status: No respiratory distress Chest status: Nontender Breath sounds: Normal Chest palpation: Normal - Cardiovascular Rhythm: Regular Heart sounds: Normal auscultation Murmur: No - Abdominal Inspection: Normal Distension: No distension Bowel sounds: Normal Tenderness: Nontender Organomegaly: No organomegaly - Extremities General upper extremity: Normal inspection, Nontender, Normal color, Normal ROM, Normal temperature General lower extremity: Normal inspection, Nontender, Normal color, Normal ROM, Normal temperature, Normal weight bearing. 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 No: Weakness Sensory: Normal - Psychological Associated symptoms: Depressed, Flat affect - Skin Skin Temperature: Warm Skin Moisture: Dry Skin Color: Normal Course - Re-evaluation Re-evalutation: 04/30/20 17:53 Patient's work-up largely unremarkable. His history and physical are consistent with an uncontrolled untreated psoriatic arthritis with chronic flare as well as other multiple chronic aches and pains. The patient is trying to establish care with a local regional hospital system and primary but cannot get in until June. He also reports multiple familial stressors, illuminating an issue with anxiety and some depression. He is not suicidal or homicidal. We will give him a short course of pain medications to help with his aches and pains as well as short course of prednisone to help with the flare. He will call Saturday morning to check with the primary and see if there are any cancellations to get him in sooner for care. I advised he return here or any ER immediately with any new, persistent or worsening symptoms. He verbalized understood and agreed. - Vital Signs Vital signs: Temp Pulse Resp BP Pulse Ox 98.1 F 88 18 152/105 H 96 04/30/20 15:58 04/30/20 15:58 04/30/20 15:58 04/30/20 15:58 04/30/20 15:58 - Laboratory Result Diagrams: 04/30/20 16:10 04/30/20 16:10 Laboratory results interpreted by me: 04/30/20 04/30/20 16:10 16:10 RDW 15.8 H Creatine Kinase 40 L Discharge - Discharge Clinical Impression: History of psoriatic arthritis, Generalized weakness, Multiple joint pain Condition: Stable Disposition: HOME, SELF-CARE Instructions: Depression ([facility]), Pain Management, Oral Narcotic Medication ([facility]) Additional Instructions: Follow-up with your regular doctor in 2 to 3 days for reevaluation. Return here or any ER immediately with any new, persistent or worsening symptoms. Prescriptions: Prednisone [Deltasone 10 mg Tablet] 10 mg PO ASDIR PRN #21 tablet PRN Reason: Hydrocodone/Acetaminophen [[place] 10-325 Tablet] 1 each PO Q6 PRN #12 tablet PRN Reason:
[2020-04-30 16:32] LABS: ABSOLUTE BASOPHILS # (AUTO) 0.1 10^3/uL (0.0-0.2); ABSOLUTE EOSINOPHILS # (AUTO) 0.2 10^3/uL (0.0-0.6); ABSOLUTE LYMPHOCYTES (AUTO) 1.4 10^3/uL (0.5-4.7); ABSOLUTE MONOCYTES (AUTO) 0.4 10^3/uL (0.1-1.4); ABSOLUTE NEUT (AUTO) 5.1 10^3/uL (1.7-8.2); BASOPHILS % (AUTO) 0.8 % (0-2); EOSINOPHILS % (AUTO) 2.6 % (0-6); HEMATOCRIT 43.2 % (37.9-51.0); HEMOGLOBIN 14.4 g/dL (13.5-17.0); LYMPHOCYTES % (AUTO) 19.5 % (13-45); MEAN CORPUSCULAR HEMOGLOBIN 28.2 pg (27.0-33.4); MEAN CORPUSCULAR HGB CONC 33.3 g/dL (32.0-36.0); MEAN CORPUSCULAR VOLUME 85 fl (80-97); PLATELET COUNT 246 10^3/uL (150-450); RED CELL DISTRIBUTION WIDTH 15.8 % (11.5-14.0); SEGMENTED NEUTROPHILS % (AUTO) 71.1 % (42-78); TOTAL CELLS COUNTED % (AUTO) 100 %; WHITE BLOOD COUNT 7.2 10^3/uL (4.0-10.5)
--- NOTE | 2020-04-30 16:34 | RADIOLOGY REPORT (SQ) ---
EXAM DESCRIPTION: CHEST SINGLE VIEW IMAGES COMPLETED DATE/TIME: 04/30/2020 4:16 pm REASON FOR STUDY: weakness COMPARISON: Chest x-ray 02/21/2020, 06/27/2019. EXAM PARAMETERS: NUMBER OF VIEWS: One view. TECHNIQUE: Single frontal radiographic view of the chest acquired. RADIATION DOSE: NA LIMITATIONS: None. FINDINGS: LUNGS AND PLEURA: No consolidation, pneumothorax or pleural effusion. MEDIASTINUM AND HILAR STRUCTURES: No masses. Contour normal. HEART AND VASCULAR STRUCTURES: Heart normal in size. Normal vasculature. BONES: There are healed left-sided rib fractures. HARDWARE: None in the chest. IMPRESSION: NO ACUTE RADIOGRAPHIC FINDING IN THE CHEST. TECHNICAL DOCUMENTATION: JOB ID: [id number] 2010 [employer]- All Rights Reserved Reading location - IP/workstation name: [email or web address]
[2020-04-30 16:40] LABS: INTERNATIONAL RATION (INR) 0.97; PARTIAL THROMBOPLASTIN TIME 28.1 SEC (23.5-35.8); PROTHROMBIN TIME 12.9 SEC (11.4-15.4)
[2020-04-30 16:49] LABS: ALBUMIN 3.9 g/dL (3.5-5.0); ALKALINE PHOSPHATASE 56 U/L (38-126); ANION GAP 5 (5-19); ASPARTATE AMINO TRANSFERASE 21 U/L (17-59); BILIRUBIN,TOTAL 0.4 mg/dL (0.2-1.3); BLOOD UREA NITROGEN 11 mg/dL (7-20); CALCIUM 9.4 mg/dL (8.4-10.2); CARBON DIOXIDE 30 mmol/L (22-30); CHLORIDE 103 mmol/L (98-107); CREATINE KINASE 40 U/L (55-170); GLUCOSE 96 mg/dL (75-110); PHOSPHORUS 4.3 mg/dL (2.5-4.5); POTASSIUM 4.6 mmol/L (3.6-5.0)
[2020-04-30 18:21] VITALS: BP 156/104
[2020-04-30] MEDS ORDERED: HYDROCODONE/ACETAMINOPHEN 5-325 MG (6 TAB/ER DISP) PO PRN (18:21)
--- NOTE | 2020-04-30 20:52 | EKG REPORT ---
SEVERITY:- NORMAL ECG - SINUS RHYTHM : Confirmed by: Sue Tai 30-Apr-2020 20:51:33
== END 2020-04-30 18:55 | disposition home or self-care (01) ==
LOC: ER 14:14
DX: L40.50 Arthropathic psoriasis, unspecified (principal); F32.9 Major depressive disorder, single episode, unspecified; F41.9 Anxiety disorder, unspecified; R53.1 Weakness; J44.9 Chronic obstructive pulmonary disease, unspecified; F17.200 Nicotine dependence, unspecified, uncomplicated; I10 Essential (primary) hypertension; Z63.4 Disappearance and death of family member
CPT/HCPCS: 36415; 71045; 80053; 82550; 83735; 84100; 84484; 85025; 85610; 85730; 93005; 93010; 99284

== ENCOUNTER 2020-05-27 14:05 | Emergency (ER) | payer MEDICAID ==
[2020-05-27 14:10] VITALS: BP 162/102
--- NOTE | 2020-05-27 14:47 | ER Document Report ---
ED General - General Chief Complaint: Shoulder Pain Stated Complaint: JOINT PAIN Time Seen by Provider: 05/27/20 14:33 Information source: Patient Notes: Patient is a 54-year-old male comes emergency room with a complaint of acute exacerbation of his psoriatic arthritis. Patient recently has not had a it applications analyst or primary care provider available to him and he is going as far as he could without coming back to the ER and asking for help. He does state that he has an appointment with a medical doctor on 13 June but at this point his exacerbation is gotten worse and he is requesting to be seen for possible steroid control and possibly some medication for discomfort and pain for sleep at night. TRAVEL OUTSIDE OF THE [place] IN LAST 30 DAYS: No - HPI Onset: Last week Onset/Duration: Gradual Quality of pain: Achy, Sharp Severity: Moderate Pain Level: 4 Associated symptoms: None Exacerbated by: Standing, Movement, Walking Relieved by: Denies Similar symptoms previously: Yes Recently seen / treated by doctor: Yes - Related Data Allergies/Adverse Reactions: Penicillins Adverse Reaction (Verified 04/13/19 09:27) Past Medical History - General Information source: Patient - Social History Smoking Status: Current Every Day Smoker Chew tobacco use (# tins/day): No Smoking Education Provided: Yes Frequency of alcohol use: None Drug Abuse: Marijuana Lives with: Family Family History: Reviewed & Not Pertinent Patient has homicidal ideation: No - Past Medical History Cardiac Medical History: Reports: Hx Hypertension Denies: Hx Coronary Artery Disease, Hx Heart Attack Pulmonary Medical History: Reports: Hx Pneumonia Denies: Hx Asthma, Hx Bronchitis, Hx COPD Neurological Medical History: Denies: Hx Cerebrovascular Accident, Hx Seizures Renal/ Medical History: Reports: Hx Kidney Stones. Denies: Hx Peritoneal Dialysis Musculoskeletal Medical History: Reports Hx Arthritis Past Surgical History: Reports: Hx Cholecystectomy, Hx Orthopedic Surgery - right shoulder - Immunizations Hx Diphtheria, Pertussis, Tetanus Vaccination: Yes - unknown Hx Pneumococcal Vaccination: 11/04/18 Review of Systems - Review of Systems Constitutional: No symptoms reported EENT: No symptoms reported Cardiovascular: No symptoms reported Respiratory: No symptoms reported Gastrointestinal: No symptoms reported Genitourinary: No symptoms reported Male Genitourinary: No symptoms reported Musculoskeletal: See HPI, Joint pain, Muscle stiffness Skin: See HPI Hematologic/Lymphatic: No symptoms reported Neurological/Psychological: No symptoms reported -: Yes All other systems reviewed and negative Physical Exam - Vital signs Vitals: Temp Pulse Resp BP Pulse Ox 98.3 F 86 18 162/102 H 99 05/27/20 14:05/27/20 14:05/27/20 14:05/27/20 14:05/27/20 14:09 Interpretation: Hypertensive - Notes Notes: PHYSICAL EXAMINATION: GENERAL:well-nourished and in no acute distress. HEAD: Atraumatic, normocephalic. EYES: Pupils equal round and reactive to light, extraocular movements intact, sclera anicteric, conjunctiva are normal. ENT: Nares patent, oropharynx clear without exudates. Moist mucous membranes. NECK: Normal range of motion, supple without lymphadenopathy LUNGS: Breath sounds clear to auscultation bilaterally and equal. No wheezes rales or rhonchi. HEART: Regular rate and rhythm without murmurs Musculoskeletal: Examination patient's upper and lower extremities does show patient to have psoriasis on the elbows and knee area. Patient also has mode rate amount of joint discomfort and pain with passive range of motion. Mild crepitus is felt in the knees on passive range of motion. Skin: As stated patient has psoriasis that is noted up out his joints. No sign of infection at this time. But an acute exacerbation appears NEUROLOGICAL: Normal speech, normal gait. Normal sensory, motor exams PSYCH: Normal mood, normal affect. SKIN: Warm, Dry, normal turgor, no rashes or lesions noted. Course - Vital Signs Vital signs: Temp Pulse Resp BP Pulse Ox 98.3 F 86 18 162/102 H 99 05/27/20 14:05/27/20 14:05/27/20 14:05/27/20 14:05/27/20 14:09 Discharge - Discharge Clinical Impression: Psoriatic arthritis Condition: Stable Disposition: HOME, SELF-CARE Instructions: Arthritis ([facility]), Psoriasis ([facility]) Additional Instructions: Keep your appointment on June 13 with a new primary care provider. As I have indicated to you steroids also have their negative effects which can cause diabetes, it can also lower your immune system and leaving more open and susceptible to infections. However given that you have a history of psoriatic arthritis and psoriasis at this time I will go and place you on a taper. I will also allow you a few hydrocodone for pain and sleep at night since is it appears to be an acute flare. But you will need to really establish with someone relatively soon in order for you to get good continuity of care. However should you become short of breath spike a fever or have any concerns or return to ER for reevaluation. Prescriptions: Hydrocodone/Acetaminophen [[place] 5-325 mg Tabs (6 Tab/ER Disp)] 0 tab PO ASDIR PRN #1 dspk PRN Reason: Prednisone 10 mg PO ASDIR PRN 6 Days #21 tab.ds.pk PRN Reason: Forms: Elevated Blood Pressure, Smoking Cessation Education
[2020-05-27] MEDS ORDERED: HYDROCODONE/ACETAMINOPHEN 5-325 MG (6 TAB/ER DISP) PO PRN (14:55)
== END 2020-05-27 15:10 | disposition home or self-care (01) ==
LOC: ER 14:05
DX: L40.50 Arthropathic psoriasis, unspecified (principal); M25.519 Pain in unspecified shoulder; Z88.0 Allergy status to penicillin; F17.200 Nicotine dependence, unspecified, uncomplicated
CPT/HCPCS: 99283

== ENCOUNTER 2020-06-10 11:59 | Emergency (ER) | payer MEDICAID ==
--- NOTE | 2020-06-10 12:42 | ER Document Report ---
HPI - HPI Time Seen by Provider: 06/10/20 12:21 - REPRODUCTIVE Reproductive: DENIES: : Past Medical History - Social History Family History: Reviewed & Not Pertinent - Past Medical History Cardiac Medical History: Reports: Hx Hypertension Denies: Hx Coronary Artery Disease, Hx Heart Attack Pulmonary Medical History: Reports: Hx Pneumonia Denies: Hx Asthma, Hx Bronchitis, Hx COPD Neurological Medical History: Denies: Hx Cerebrovascular Accident, Hx Seizures Renal/ Medical History: Reports: Hx Kidney Stones. Denies: Hx Peritoneal Dialysis Musculoskeletal Medical History: Reports Hx Arthritis Past Surgical History: Reports: Hx Cholecystectomy, Hx Orthopedic Surgery - right shoulder - Immunizations Hx Diphtheria, Pertussis, Tetanus Vaccination: Yes - unknown Hx Pneumococcal Vaccination: 11/04/18 Vertical Provider Document - INFECTION CONTROL TRAVEL OUTSIDE OF THE [place] IN LAST 30 DAYS: No Course - Vital Signs Vital signs: Temp Pulse Resp BP Pulse Ox 98.4 F 79 18 174/104 H 99 06/10/20 12:04 06/10/20 12:04 06/10/20 12:04 06/10/20 12:04 06/10/20 12:04
[2020-06-10] MEDS ORDERED: HYDROCODONE/ACETAMINOPHEN 5-325 MG (6 TAB/ER DISP) PO PRN (12:43)
--- NOTE | 2020-06-10 12:48 | ER Document Report ---
HPI - HPI Time Seen by Provider: 06/10/20 12:21 Context: Patient is a 54-year-old male with a history of psoriatic arthritis who presents the emergency department with joint pain. Patient states that over the past few days, his psoriatic arthritis has gotten worse. Patient has an appointment with his primary care provider in 3 days, but feels his arthritis is flaring. Patient states that the last time he was here he received steroids and these helped him. Denies any shortness of breath, difficulty breathing, abdominal pain, or any other symptoms. - ROS Systems Reviewed and Negative: Yes All other systems reviewed and negative - CONSTITUTIONAL Constitutional: DENIES: Fever, Chills - REPRODUCTIVE Reproductive: DENIES: : - MUSCULOSKELETAL Musculoskeletal: REPORTS: Extremity pain - Generalized joint pain - DERM Skin Color: Normal Skin Problems: Rash - Back and hand due to psoriasis Past Medical History - General Information source: Patient - Social History Smoking Status: Current Every Day Smoker Family History: Reviewed & Not Pertinent - Past Medical History Cardiac Medical History: Reports: Hx Hypertension Denies: Hx Coronary Artery Disease, Hx Heart Attack Pulmonary Medical History: Reports: Hx Pneumonia Denies: Hx Asthma, Hx Bronchitis, Hx COPD Neurological Medical History: Denies: Hx Cerebrovascular Accident, Hx Seizures Renal/ Medical History: Reports: Hx Kidney Stones. Denies: Hx Peritoneal Dialysis Musculoskeletal Medical History: Reports Hx Arthritis Past Surgical History: Reports: Hx Cholecystectomy, Hx Orthopedic Surgery - right shoulder - Immunizations Hx Diphtheria, Pertussis, Tetanus Vaccination: Yes - unknown Hx Pneumococcal Vaccination: 11/04/18 Vertical Provider Document - CONSTITUTIONAL Agree With Documented VS: Yes Exam Limitations: No Limitations General Appearance: No Apparent Distress - INFECTION CONTROL TRAVEL OUTSIDE OF THE [place] IN LAST 30 DAYS: No - HEENT HEENT: Atraumatic, Normocephalic, PERRLA - NECK Neck: Normal Inspection - RESPIRATORY Respiratory: Breath Sounds Normal, No Respiratory Distress - CARDIOVASCULAR Cardiovascular: Regular Rate, Regular Rhythm Pulses: Normal: Radial - MUSCULOSKELETAL/EXTREMETIES Musculoskeletal/Extremeties: FROM, No Edema - NEURO Level of Consciousness: Awake, Alert, Appropriate - DERM Integumentary: Warm, Dry, Rash - Posterior hand, plaques consistent with psoriatic arthritis Course - Re-evaluation Re-evalutation: 06/10/20 12:53 Patient is able to move all extremities with no difficulty. Patient does have some psoriasis noted to his right posterior hand. Will place him on a course of steroids and he has a follow-up appointment in 3 days. I have a low suspicion for any life-threatening etiology. Follow-up precautions were given. Verbal discharge instructions were given to the patient. They verbalized understanding. They are stable for discharge. - Vital Signs Vital signs: Temp Pulse Resp BP Pulse Ox 98.4 F 79 18 174/104 H 99 06/10/20 12:04 06/10/20 12:04 06/10/20 12:04 06/10/20 12:04 06/10/20 12:04 Discharge - Discharge Clinical Impression: Psoriatic arthritis Joint pain Qualifiers: Joint pain location: unspecified Qualified Code(s): M25.50 - Pain in unspecified joint Condition: Stable Disposition: HOME, SELF-CARE Additional Instructions: You were seen today in the emergency department for joint pain due to your psoriatic arthritis. Please keep your follow-up appointment. Take the steroids as prescribed. Prescriptions: Hydrocodone/Acetaminophen [Jarales 5-325 mg Tablet] 1 tab PO Q8HP PRN #6 tablet PRN Reason: Prednisone 10 mg PO ASDIR PRN #21 tab.ds.pk PRN Reason: Forms: Return to Work
[2020-06-10 13:01] VITALS: BP 168/99
== END 2020-06-10 12:56 | disposition home or self-care (01) ==
LOC: ER 11:59
DX: L40.50 Arthropathic psoriasis, unspecified (principal); F17.200 Nicotine dependence, unspecified, uncomplicated; I10 Essential (primary) hypertension
CPT/HCPCS: 99283

== ENCOUNTER 2020-07-08 14:55 | Emergency (ER) | payer MEDICAID ==
[2020-07-08 15:07] VITALS: BP 157/95
[2020-07-08] MEDS ORDERED: OXYCODONE-ACETAMINOPHEN 5-325 MG TABLET PO ONE (15:48)
--- NOTE | 2020-07-08 15:48 | ER Document Report ---
HPI - HPI Time Seen by Provider: 07/08/20 15:45 Pain Level: 4 Notes: This is a 54-year-old male presenting to the emergency department bilateral shoulder pain. Patient reports he nearly fell, put both of his arms outward caught himself with his arms and now has shoulder pain. He states he is supposed to have shoulder replacements bilaterally. He has not taken any medication for his symptoms prior to arrival. He states that this occurred a few hours ago. - ROS Systems Reviewed and Negative: Yes All other systems reviewed and negative - REPRODUCTIVE Reproductive: DENIES: : - MUSCULOSKELETAL Musculoskeletal: REPORTS: Extremity pain - bilateral shoulder Past Medical History - General Information source: Patient - Social History Smoking Status: Never Smoker Frequency of alcohol use: None Drug Abuse: None Family History: Reviewed & Not Pertinent Patient has homicidal ideation: No - Past Medical History Cardiac Medical History: Reports: Hx Hypertension Denies: Hx Coronary Artery Disease, Hx Heart Attack Pulmonary Medical History: Reports: Hx Pneumonia Denies: Hx Asthma, Hx Bronchitis, Hx COPD Neurological Medical History: Denies: Hx Cerebrovascular Accident, Hx Seizures Renal/ Medical History: Reports: Hx Kidney Stones. Denies: Hx Peritoneal Dialysis Musculoskeletal Medical History: Reports Hx Arthritis Past Surgical History: Reports: Hx Cholecystectomy, Hx Orthopedic Surgery - right shoulder - Immunizations Hx Diphtheria, Pertussis, Tetanus Vaccination: Yes - unknown Hx Pneumococcal Vaccination: 11/04/18 Vertical Provider Document - CONSTITUTIONAL Notes: PHYSICAL EXAMINATION: GENERAL: Well-appearing, well-nourished and in no acute distress. HEAD: Atraumatic, normocephalic. EYES: Pupils equal round extraocular movements intact, conjunctiva are normal. ENT: Nares patent NECK: Normal range of motion LUNGS: No respiratory distress Musculoskeletal: Normal range of motion to bilateral shoulders, no crepitus or deformity on palpation. No tenderness on palpation. Patient has strong radial pulses bilaterally, normal cap refill bilaterally and normal motor and sensation to bilateral upper extremities. NEUROLOGICAL: Normal speech, normal gait. PSYCH: Normal mood, normal affect. SKIN: Warm, Dry, normal turgor, no rashes or lesions noted. - INFECTION CONTROL TRAVEL OUTSIDE OF THE [place] IN LAST 30 DAYS: No Course - Re-evaluation Re-evalutation: Exam unremarkable, x-rays negative for any acute fracture or dislocation. Patient will be given a short course of pain medication as he is pending bilateral shoulder replacement. He will follow-up with his orthopedic surgeon. - Vital Signs Vital signs: Temp Pulse Resp BP Pulse Ox 98.2 F 81 22 H 157/95 H 98 07/08/20 15:04 07/08/20 15:04 07/08/20 15:04 07/08/20 15:04 07/08/20 15:04 Discharge - Discharge Clinical Impression: Bilateral shoulder pain Qualifiers: Chronicity: acute Qualified Code(s): M25.511 - Pain in right shoulder Condition: Stable Disposition: HOME, SELF-CARE Additional Instructions: Your x-rays today showed no acute abnormality. There was no fracture or dislo cation of the bones. Please keep the follow-up appointment you have with your orthopedic surgeon. Take ibuprofen 800 mg every 8 hours as prescribed. You may want to apply ice to the area over the next 1 to 2 days. Do not exceed 20 minutes of icing at a time. Return to the emergency department with any new or worsening symptoms. Prescriptions: Hydrocodone/Acetaminophen [[place] 5-325 mg Tablet] 1 tab PO Q8HP PRN #10 tablet PRN Reason: Ibuprofen [Motrin 800 mg Tablet] 800 mg PO Q8H PRN #30 tab PRN Reason:
[2020-07-08] MEDS ORDERED: HYDROCODONE/ACETAMINOPHEN 5-325 MG (6 TAB/ER DISP) PO PRN (17:15)
--- NOTE | 2020-07-08 18:19 | RADIOLOGY REPORT (SQ) ---
EXAM DESCRIPTION: SHOULDER BILAT 2 OR MORE VIEWS IMAGES COMPLETED DATE/TIME: 07/08/2020 4:09 pm REASON FOR STUDY: B/L shoulder pain/fall COMPARISON: None. FINDINGS: Bilateral shoulders, three views each. Right shoulder: Degenerative glenohumeral changes. Evidence of prior cuff surgery. No acute findin gs. Left shoulder: Degenerative glenohumeral changes. No evidence of fracture or bone lesion. Bilateral visualized lungs are clear. TECHNICAL DOCUMENTATION: JOB ID: [id number] Reading location - IP/workstation name: [email or web address]
== END 2020-07-08 17:25 | disposition home or self-care (01) ==
LOC: ER 14:55
DX: M25.511 Pain in right shoulder (principal); M25.512 Pain in left shoulder; I10 Essential (primary) hypertension
CPT/HCPCS: 99284

== ENCOUNTER 2020-07-11 14:15 | Emergency (ER) | payer MEDICAID ==
[2020-07-11 14:23] VITALS: BP 181/106
[2020-07-11] MEDS ORDERED: PREDNISONE 20 MG TABLET PO ONE (14:34)
[2020-07-11] MEDS ORDERED: HYDROCODONE/ACETAMINOPHEN 5-325 MG TABLET PO ONE (14:34)
--- NOTE | 2020-07-11 14:42 | ER Document Report ---
ED Skin Rash/Insect Bite/Abscs - General Chief Complaint: Skin Problem Stated Complaint: SKIN ISSUE Time Seen by Provider: 07/11/20 14:25 Primary Care Provider: JESSICA HOLDEN NP [Primary Care Provider] - Follow up as needed Mode of Arrival: Ambulatory Information source: Patient Notes: 40-year-old male presented to ED for increase in pain to his psoriatic arthriti s. He states he has an appointment with the orthopedic and he is supposed to get a appointment with a air carrier operations inspector but did not get the referral and has not seen a air carrier operations inspector yet. He states he would like some more steroids for his arthritis and some narcotics. I did inform him that we do not treat chronic pain with narcotics that this he needs to go to his primary care or a paint mixer machine for. I have given him a prescription for some steroids and some instructions on the pain times he can use for his psoriasis. I have also instructed him to follow-up with his primary care doctor to get referral to rheumatology. He states he does have a history of surgery to his right rotator cuff and needs surgery to both shoulders now. He does have a history of high blood pressure cholesterol gallbladder he has had fractures to his ribs sternum knees and ankles. He states he does continue to smoke 10 cigarettes a day. REVIEW OF SYSTEMS: CONSTITUTIONAL : Denies fever, chills, or sweats. Denies recent illness. EENT: Denies eye, ear, throat, or mouth pain or symptoms. Denies nasal or sinus congestion. CARDIOVASCULAR: Denies chest pain. RESPIRATORY: Denies cough, cold, or chest congestion. Denies shortness of breath, difficulty breathing, or wheezing. GASTROINTESTINAL: Denies abdominal pain. Denies nausea, vomiting, or diarrhea. Denies constipation. Last BM: GENITOURINARY: Denies difficulty urinating, painful urination, burning, frequency, or blood in urine. FEMALE GENITOURINARY: Denies vaginal bleeding, abnormal or irregular periods. LMP: MUSCULOSKELETAL: Numbness to both shoulders both elbows both knees. He does have psoriatic arthritis at the [facility] SKIN: Scaly rash to both elbows both knees both ears. He has psoriatic arthritis HEMATOLOGIC : Denies easy bruising or bleeding. LYMPHATIC: Denies swollen, enlarged glands. NEUROLOGICAL: Denies altered mental status or loss of consciousness. Denies headache. Denies weakness or paralysis or loss of use of either side. Denies problems with gait or speech. Denies sensory or motor loss. PSYCHIATRIC: Denies anxiety or stress or depression. ALL OTHER SYSTEMS REVIEWED AND NEGATIVE. PHYSICAL EXAMINATION: GENERAL: Well-appearing, well-nourished and in no acute distress. HEAD: Atraumatic, normocephalic. EYES: Pupils equal round extraocular movements intact, conjunctiva are normal. ENT: Nares patent NECK: Normal range of motion LUNGS: No respiratory distress Musculoskeletal: Patient has limited range of motion to both shoulders due to pain. He has psoriatic arthritis. He states he knows he needs surgery to both shoulders he has an appointment with orthopedics. NEUROLOGICAL: Normal speech, normal gait. PSYCH: Normal mood, normal affect. SKIN: scaly flaky psoriasis to both elbows both knees and both ears TRAVEL OUTSIDE OF THE [place] IN LAST 30 DAYS: No - HPI Patient complains to provider of: Skin rash/lesion Onset: Other - Both knees both elbows behind both ears Onset/Duration: Persistent Quality of pain: Achy, Sharp Severity: Moderate Pain Level: 2 Skin Character: Other - Psoriatic arthritis Quality of rash: Itchy, Painful Identify cause: Yes Exacerbated by: Movement, Walking Relieved by: Denies Similar symptoms previously: Yes Recently seen / treated by doctor: Yes - Related Data Allergies/Adverse Reactions: Penicillins Adverse Reaction (Verified 04/13/19 09:27) Past Medical History - Social History Smoking Status: Current Every Day Smoker Chew tobacco use (# tins/day): No Frequency of alcohol use: None Drug Abuse: None Family History: Reviewed & Not Pertinent Patient has homicidal ideation: No - Past Medical History Cardiac Medical History: Reports: Hx Hypertension Denies: Hx Coronary Artery Disease, Hx Heart Attack Pulmonary Medical History: Reports: Hx Pneumonia Denies: Hx Asthma, Hx Bronchitis, Hx COPD Neurological Medical History: Denies: Hx Cerebrovascular Accident, Hx Seizures Renal/ Medical History: Reports: Hx Kidney Stones. Denies: Hx Peritoneal Dialysis Musculoskeletal Medical History: Reports Hx Arthritis Past Surgical History: Reports: Hx Cholecystectomy, Hx Orthopedic Surgery - right shoulder - Immunizations Hx Diphtheria, Pertussis, Tetanus Vaccination: Yes - unknown Hx Pneumococcal Vaccination: 11/04/18 Physical Exam - Vital signs Vitals: Temp 98.6 F 07/11/20 14:16 Course - Re-evaluation Re-evalutation: 07/11/20 14:47 Patient is on blood pressure medicine he is in pain at this time he states he states he needs a different pain medicine than what his primary care has prescribed he may he also is requesting prednisone. I have given him a short dose of prednisone and have informed him he needs to follow-up with his primary care and air carrier operations inspector for any more medications for his psoriatic arthritis. I have instructed him that the emergency room does not give chronic pain management. - Vital Signs Vital signs: Temp Pulse Resp BP Pulse Ox 97.8 F 75 20 181/106 H 99 07/11/20 14:49 07/11/20 14:22 07/11/20 14:22 07/11/20 14:22 07/11/20 14:22 Discharge - Discharge Clinical Impression: Psoriatic arthritis Chronic pain Qualifiers: Chronic pain type: other chronic pain Qualified Code(s): G89.29 - Other chronic pain Condition: Stable Disposition: HOME, SELF-CARE Additional Instructions: Psoriasis You have psoriasis. This is a common disease, but the cause is unknown. Psoriasis often runs in families. The skin blemishes are usually red with a thick, silvery scale. It is most commonly seen over the knees, elbows, and scalp. The nails may become thickened or pitted. Psoriasis is treated with cortisone cream. You can wrap the area with plastic wrap overnight to increase the effectiveness of the cream. Tar preparations may be used on non-hairy areas. Medicated shampoos are often prescribed. Management by a fondant machine operator is advised. Arthritis Your symptoms are due to arthritis. Arthritis is an inflammation of the joints. There are many types -- osteoarthritis (due to "wear and tear"), auto- immmune arthritis (such as rheumatoid, lupus, Ivonne's, and others), and crystal-induced arthritis (such as gout and pseudogout). The physician's examination, combined with laboratory tests, will determine the cause of your arthritis. All types of arthritis are treated with antiinflammatory medications. Other medication may be required for special types of arthritis, or if your problem does not respond to the antiinflammatory medicine. Local warmth may be helpful. Move the involved joints through the full range of motion daily. Mild exercise is usually still possible for most persons with arthritis (ask your physician). Swimming provides good exercise without damaging the joints. Contact the physician if you are worsening in any way. STEROID MEDICATION: You have been given a medicine of the cortisone/steroid class. This medication is used to control inflammation or allergy. It is usually only given for a short period of time, until the acute process subsides. There are usually no side effects from short-term use of cortisone-like medications. Some persons feel an increased sense of well-being and are not sleepy at bedtime. Long-term use of cortisone medications is best avoided, unless required for a severe condition. If your condition does not remit, or relapses after the course of corticosteroid medication, you should consult your physician. Oral Narcotic Medication You have been given a Banco for pain control. This medication is a narcotic. It's best taken with food, as nausea can result if taken on an empty stomach. Don't operate machinery or drive within six hours of taking this medic ation. Do not combine this medicine with alcohol, or with any medication which can cause sedation (such as cold tablets or sleeping pills) unless you get permission from the physician. Narcotics tend to cause constipation. If possible, drink plenty of fluids and eat a diet high in fiber and fruits. Please go to the [employer] or [address] of the [employer] and buy some Eucerin cream to use on your psoriasis. It is in a jar type container. You can mix it with some vitamin E oil and it will often help your psoriasis. You just buy a little bottle of vitamin D oil dumped into the jar of urination cream and mix it well and then use it twice a day. FOLLOW-UP CARE: If you have been referred to a physician for follow-up care, call the physicians office for an appointment as you were instructed or within the next two days. If you experience worsening or a significant change in your symptoms, notify the physician immediately or return to the Emergency Department at any time for re-evaluation. Prescriptions: Prednisone [Deltasone 20 mg Tablet] 2 tab PO DAILY 5 Days #10 tablet Forms: Elevated Blood Pressure, Smoking Cessation Education Referrals: JESSICA HOLDEN NP [Primary Care Provider] - Follow up as needed
== END 2020-07-11 14:49 | disposition home or self-care (01) ==
LOC: ER 14:15
DX: L40.50 Arthropathic psoriasis, unspecified (principal); G89.29 Other chronic pain; F17.200 Nicotine dependence, unspecified, uncomplicated; I10 Essential (primary) hypertension; Z87.442 Personal history of urinary calculi; Z90.49 Acquired absence of other specified parts of digestive tract
CPT/HCPCS: 99283; J7512

== ENCOUNTER 2020-08-02 19:32 | Emergency (ER) | payer MEDICAID ==
[2020-08-02] MEDS ORDERED: OXYCODONE-ACETAMINOPHEN 5-325 MG TABLET PO ONE (21:14)
--- NOTE | 2020-08-02 21:19 | ER Document Report ---
HPI - HPI Patient complains to provider of: Psoriasis pain Time Seen by Provider: 08/02/20 21:01 Pain Level: 3 Notes: 54-year-old male with history of psoriatic arthritis to the emergency department with complaints of uncontrolled psoriatic arthritis pain and plaques to his hands arms knees them ongoing for several weeks. He states that he has pain every single day. He is trying to get in to pain management. He has been calling them and they asked him today if he would travel to [place]. He states that he had told them yes but he never heard back. He states that he used to be on some medicine for his psoriasis but then his plate cleaner no longer took his Medicaid. He states he has not had a plate cleaner since then. He states his been trying to find a plate cleaner to help him. He states occasionally when he gets steroids it helps the plaques for small merit of time but then they just come back. He has been taking Voltaren with some mild help. He denies any fevers or chills. He denies any chest pain or shortness of breath. He denies any superimposed infections to the plaques. - ROS Systems Reviewed and Negative: Yes All other systems reviewed and negative - CONSTITUTIONAL Constitutional: DENIES: Fever, Chills - EENT EENT: DENIES: Sore Throat, Ear Pain, Congestion - NEURO Neurology: DENIES: Headache, Weakness - CARDIOVASCULAR Cardiovascular: DENIES: Chest pain - RESPIRATORY Respiratory: DENIES: Trouble Breathing, Coughing - GASTROINTESTINAL Gastrointestinal: DENIES: Abdominal Pain, Nausea, Patient vomiting, Diarrhea, Constipation - MUSCULOSKELETAL Musculoskeletal: REPORTS: Extremity pain Notes: See HPI - DERM Skin Color: Normal Skin Problems: Rash - Psoriasis Past Medical History - General Information source: Patient - Social History Smoking Status: Current Every Day Smoker Chew tobacco use (# tins/day): No Frequency of alcohol use: None Drug Abuse: None Family History: Reviewed & Not Pertinent Patient has homicidal ideation: No - Past Medical History Cardiac Medical History: Reports: Hx Hypertension Denies: Hx Coronary Artery Disease, Hx Heart Attack Pulmonary Medical History: Reports: Hx Pneumonia Denies: Hx Asthma, Hx Bronchitis, Hx COPD Neurological Medical History: Denies: Hx Cerebrovascular Accident, Hx Seizures Renal/ Medical History: Reports: Hx Kidney Stones. Denies: Hx Peritoneal Dialysis Musculoskeletal Medical History: Reports Hx Arthritis Past Surgical History: Reports: Hx Cholecystectomy, Hx Orthopedic Surgery - right shoulder - Immunizations Hx Diphtheria, Pertussis, Tetanus Vaccination: Yes - unknown Hx Pneumococcal Vaccination: 11/04/18 Vertical Provider Document - CONSTITUTIONAL Agree With Documented VS: Yes Exam Limitations: No Limitations General Appearance: WD/WN, No Apparent Distress - INFECTION CONTROL TRAVEL OUTSIDE OF THE [place] IN LAST 30 DAYS: No - HEENT HEENT: Atraumatic, Normocephalic, PERRLA - NECK Neck: Normal Inspection, Supple - RESPIRATORY Respiratory: Breath Sounds Normal, No Respiratory Distress. negative: Rales, Rhonchi, Wheezing - CARDIOVASCULAR Cardiovascular: Regular Rate, Regular Rhythm, No Murmur - GI/ABDOMEN Gastrointestinal: Abdomen Soft, Abdomen Non-Tender - MUSCULOSKELETAL/EXTREMETIES Musculoskeletal/Extremeties: GERMAN, FROM Notes: He can ambulate without any difficulty. He has full range of motion in bilateral upper extremity and bilateral lower extremities against resistance. - NEURO Level of Consciousness: Awake, Alert Motor/Sensory: No Motor Deficit, No Sensory Deficit - DERM Integumentary: Rash - There are multiple silvery scaly macules to the back of the hands to the extensor surface of the elbows and the knees. There is no s uperimposed infection. Patient has mild vague tenderness to palpations to multiple joints but without any evidence for joint erythema or warmth. Course - Re-evaluation Re-evalutation: 08/02/20 23:19 Impression: Chronic pain from psoriatic arthritis. I explained to patient that we have a pain management policy where we cannot treat chronic pain medicine with prescriptions for controlled substances. I have encouraged him to follow- up with pain management tomorrow to get an appointment with them. I have called our returned case inspector Ronaldo Lozano and asked that she try to help get the patient to follow-up with a plate cleaner who can help manage his psoriasis. Noted elevated blood pressure. Patient has a known history of hypertension and has not taken his medicines today. Encouraged him to be compliant with his medications. Patient agrees with the plan - Vital Signs Vital signs: Temp Pulse Resp BP Pulse Ox 98.1 F 85 20 187/104 H 96 08/02/20 19:59 08/02/20 19:59 08/02/20 19:59 08/02/20 19:59 08/02/20 19:59 Discharge - Discharge Clinical Impression: Psoriatic arthritis Chronic pain Qualifiers: Chronic pain type: chronic pain syndrome Qualified Code(s): G89.4 - Chronic pain syndrome Hypertension Qualifiers: Hypertension type: essential hypertension Qualified Code(s): I10 - Essential (primary) hypertension Condition: Stable Disposition: HOME, SELF-CARE Instructions: Pain Management, Psoriasis ([facility]) Additional Instructions: Please follow-up with [facility] pain management tomorrow without fail. We will call our returned case inspector and they will call you with follow-up about trying to get you in with a plate cleaner for your psoriatic arthritis. Return if any fevers, chills, chest pain, worsening pain. Continue to take your Voltaren tablets. Referrals: JESSICA HOLDEN NP [Primary Care Provider] - Follow up in 1 week
[2020-08-02 22:32] VITALS: BP 154/105
== END 2020-08-02 22:45 | disposition home or self-care (01) ==
LOC: ER 19:32
DX: L40.50 Arthropathic psoriasis, unspecified (principal); G89.4 Chronic pain syndrome; I10 Essential (primary) hypertension; F17.200 Nicotine dependence, unspecified, uncomplicated
CPT/HCPCS: 99283

== ENCOUNTER 2020-09-08 11:55 | Emergency (ER) | payer MEDICAID ==
[2020-09-08 12:01] VITALS: BP 187/99
--- NOTE | 2020-09-08 12:18 | ER Document Report ---
ED Medical Screen (RME) - General Chief Complaint: Leg Pain Stated Complaint: FOOT PAIN Time Seen by Provider: 09/08/20 12:13 Mode of Arrival: Wheelchair Information source: Patient Notes: 55-year-old male presented ED for complaint of sudden pain to the left calf. He states it hurts when he picks up the front of his foot. He states he has not had any injuries. He states is a cramping feeling in the back of his calf. He states it is very painful to walk on it or to move the foot. I have ordered blood and a venous Doppler to the left leg. He will be seen by another provider. States he does smoke 10 to 15 cigarettes a day states he does not drink or use any illicit drugs. He is on methotrexate for psoriatic arthritis is also on folic acid. I have greeted and performed a rapid initial assessment of this patient. A comprehensive ED assessment and evaluation of the patient, analysis of test results and completion of medical decision making process will be conducted by an additional ED providers. TRAVEL OUTSIDE OF THE [place] IN LAST 30 DAYS: No - Related Data Allergies/Adverse Reactions: Penicillins Adverse Reaction (Verified 09/08/20 12:07) Home Medications: Mathotrexate Past Medical History - Social History Chew tobacco use (# tins/day): No Frequency of alcohol use: None Drug Abuse: None - Past Medical History Cardiac Medical History: Reports: Hx Hypertension Denies: Hx Coronary Artery Disease, Hx Heart Attack Pulmonary Medical History: Reports: Hx Pneumonia Denies: Hx Asthma, Hx Bronchitis, Hx COPD Neurological Medical History: Denies: Hx Cerebrovascular Accident, Hx Seizures Renal/ Medical History: Reports: Hx Kidney Stones. Denies: Hx Peritoneal Dialysis Musculoskeltal Medical History: Reports Hx Arthritis Past Surgical History: Reports: Hx Cholecystectomy, Hx Orthopedic Surgery - right shoulder - Immunizations Hx Diphtheria, Pertussis, Tetanus Vaccination: Yes - unknown Physical Exam - Vital signs Vitals: Temp Pulse Resp BP Pulse Ox 98.7 F 94 18 187/99 H 97 09/08/20 11:59 09/08/20 11:59 09/08/20 11:59 09/08/20 11:59 09/08/20 11:59 Course - Vital Signs Vital signs: Temp Pulse Resp BP Pulse Ox 98.7 F 94 18 187/99 H 97 09/08/20 11:59 09/08/20 11:59 09/08/20 11:59 09/08/20 11:59 09/08/20 11:59
[2020-09-08 14:56] LABS: ABSOLUTE EOSINOPHILS # (AUTO) 0.1 10^3/uL (0.0-0.6); ABSOLUTE LYMPHOCYTES (AUTO) 1.2 10^3/uL (0.5-4.7); ABSOLUTE MONOCYTES (AUTO) 0.5 10^3/uL (0.1-1.4); ABSOLUTE NEUT (AUTO) 6.4 10^3/uL (1.7-8.2); BASOPHILS % (AUTO) 0.6 % (0-2); EOSINOPHILS % (AUTO) 1.3 % (0-6); HEMATOCRIT 41.7 % (37.9-51.0); HEMOGLOBIN 14.3 g/dL (13.5-17.0); LYMPHOCYTES % (AUTO) 14.7 % (13-45); MEAN CORPUSCULAR HEMOGLOBIN 28.9 pg (27.0-33.4); MEAN CORPUSCULAR HGB CONC 34.2 g/dL (32.0-36.0); MEAN CORPUSCULAR VOLUME 84 fl (80-97); MONOCYTES % (AUTO) 5.7 % (3-13); PLATELET COUNT 217 10^3/uL (150-450); RED BLOOD COUNT 4.94 10^6/uL (4.35-5.55); RED CELL DISTRIBUTION WIDTH 15.1 % (11.5-14.0); SEGMENTED NEUTROPHILS % (AUTO) 77.7 % (42-78); TOTAL CELLS COUNTED % (AUTO) 100 %; WHITE BLOOD COUNT 8.2 10^3/uL (4.0-10.5)
--- NOTE | 2020-09-08 15:00 | RADIOLOGY REPORT (SQ) ---
EXAM DESCRIPTION: VENOUS UNILATERAL LOWER IMAGES COMPLETED DATE/TIME: 09/08/2020 2:48 pm REASON FOR STUDY: left calf pain swelling COMPARISON: None. TECHNIQUE: Dynamic and static pacheco scale and color images acquired of the left leg venous system. Se lected spectral images acquired with additional compression and augmentation maneuvers. The contralat eral common femoral vein and saphenofemoral junction were also imaged. Images stored on PACS. LIMITATIONS: None. FINDINGS: COMMON FEMORAL: Normal phasicity, compression and augmentation. No visualized echogenic ma terial on pacheco scale. No defects on color images. FEMORAL: Normal compression and augmentation. No visualized echogenic material on pacheco scale. No defe cts on color images. POPLITEAL: Normal compression, augmentation. No visualized echogenic material on pacheco scale. No defec ts on color images. CALF VESSELS: Normal compression, augmentation. No visualized echogenic material on pacheco scale. No de fects on color images. GSV and SSV: Normal compression, augmentation. No visualized echogenic material on pacheco scale. No def ects on color images. ANY DEEP VENOUS INSUFFICIENCY: Not evaluated. ANY EVIDENCE OF POPLITEAL CYST: No. OTHER: No other significant finding. CONTRALATERAL COMMON FEMORAL VEIN AND SAPHENOFEMORAL JUNCTION: Normal phasicity, compression and augmentation. No visualized echogenic material on pacheco scale. No de fects on color images. IMPRESSION: NO EVIDENCE DVT OR SVT IN THE LEFT LEG. TECHNICAL DOCUMENTATION: JOB ID: [id number] 2010 [employer]- All Rights Reserved Reading location - IP/workstation name: [email or web address]
--- NOTE | 2020-09-08 15:06 | ER Document Report ---
ED Extremity Problem, Lower - General Chief Complaint: Leg Pain Stated Complaint: FOOT PAIN Time Seen by Provider: 09/08/20 12:13 Mode of Arrival: Wheelchair Notes: Patient is a 55-year-old male who presents emergency department with a chief complaint of left foot pain. Patient has a history of psoriatic arthritis. Patient was just recently placed on methotrexate and folic acid this past by his primary care provider. Patient states that he did not have any injury to his left foot/calf area. States that whenever he dorsiflex his foot, he ends up having pain. TRAVEL OUTSIDE OF THE [place] IN LAST 30 DAYS: No - Related Data Allergies/Adverse Reactions: Penicillins Adverse Reaction (Verified 09/08/20 12:07) Home Medications: Mathotrexate Past Medical History - General Information source: Patient - Social History Smoking Status: Current Every Day Smoker Chew tobacco use (# tins/day): No Frequency of alcohol use: None Drug Abuse: None Family History: Reviewed & Not Pertinent - Past Medical History Cardiac Medical History: Reports: Hx Hypertension Denies: Hx Coronary Artery Disease, Hx Heart Attack Pulmonary Medical History: Reports: Hx COPD, Hx Pneumonia Denies: Hx Asthma, Hx Bronchitis Neurological Medical History: Denies: Hx Cerebrovascular Accident, Hx Seizures Renal/ Medical History: Reports: Hx Kidney Stones. Denies: Hx Peritoneal Dialysis Musculoskeletal Medical History: Reports Hx Arthritis Past Surgical History: Reports: Hx Cholecystectomy, Hx Orthopedic Surgery - right shoulder - Immunizations Hx Diphtheria, Pertussis, Tetanus Vaccination: Yes - unknown Hx Pneumococcal Vaccination: 11/04/18 Review of Systems - Review of Systems Notes: REVIEW OF SYSTEMS: CONSTITUTIONAL : Denies recent illness. Denies recent unintentional weight loss. Denies fever, chills, or sweats. EENT: Denies eye, ear, throat, or mouth pain, discharge, or symptoms. Denies nasal or sinus congestion. CARDIOVASCULAR: Denies chest pain. RESPIRATORY: Denies shortness of breath, cough, congestion, difficulty breathing, or wheezing. GASTROINTESTINAL: Denies nausea, vomiting, and diarrhea. Denies abdominal pain. Denies constipation. GENITOURINARY: Denies difficulty urinating, burning, blood in urine, urgency or frequency. MUSCULOSKELETAL: Denies neck and back pain. See HPI. SKIN: Denies rash, itchiness, or lesions HEMATOLOGIC : Denies easy bruising or bleeding. LYMPHATIC: Denies swollen, painful, enlarged glands. NEUROLOGICAL: Denies no numbness or tingling denies weakness. Denies headache. Denies altered mental status. Denies alteration in speech. PSYCHIATRIC: Denies stress, anxiety, alteration in sleep patterns, or depression. All other systems reviewed and negative. Physical Exam - Vital signs Vitals: Temp Pulse Resp BP Pulse Ox 98.7 F 94 18 187/99 H 97 09/08/20 11:59 09/08/20 11:59 09/08/20 11:59 09/08/20 11:59 09/08/20 11:59 - Notes Notes: PHYSICAL EXAMINATION: GENERAL: Appears well, healthy, well-nourished, no acute distress. HEAD: Normocephalic, atraumatic. EYES: PERRL, conjunctiva normal, all extraocular movements intact, sclera nonicteric ENT: Moist mucous membranes. NECK: Supple, no noticeable swelling, redness, rash. Normal range of motion. LUNGS: Equal breath sounds bilaterally and clear to auscultation. No wheezes rales or rhonchi. CARDIOVASCULAR: S1-S2, regular rate, regular rhythm. Radial pulses 2+, normal. ABDOMEN: Normoactive bowel sounds. Soft, nontender, no guarding, no rebound tenderness, and no masses palpated. EXTREMITIES: Normal strength and range of motion, no pitting or edema. No cyanosis. Tenderness upon palpation to left anterior ankle. NEUROLOGICAL: Moves all extremities upon command. Strength 5/5 in all extremities. PSYCH: Normal mood, normal affect. SKIN: Warm, dry. Flaky patches, consistent with psoriasis [facility] to [facility]. Course - Re-evaluation Re-evalutation: 09/08/20 16:42 Venous Doppler study is negative for DVT. Degenerative changes noted at the tibiotalar and talonavicular joints. Discussed this with the patient. Will place patient in an Timothy wrap and crutches. He will follow-up with his primary care provider. We will give him extra [place]'s, as he only takes 1 tablet twice a day. Follow-up precautions were given. Verbal discharge instructions were given to the patient. They verbalized understanding. They are stable for discharge. - Vital Signs Vital signs: Temp Pulse Resp BP Pulse Ox 98.8 F 88 20 187/99 H 98 09/08/20 17:23 09/08/20 17:23 09/08/20 17:23 09/08/20 17:23 09/08/20 17:23 - Laboratory Result Diagrams: 09/08/20 14:32 09/08/20 14:32 Laboratory results interpreted by me: 09/08/20 14:32 RDW 15.1 H Discharge - Discharge Clinical Impression: Psoriatic arthritis Left ankle pain Qualifiers: Chronicity: acute Qualified Code(s): M25.572 - Pain in left ankle and joints of left foot Condition: Stable Disposition: HOME, SELF-CARE Instructions: Timothy Wrap ([facility]), Use of Crutches ([facility]), Ice & Elevation ([facility]) Additional Instructions: You were seen today in the emergency department for left ankle pain. You have degenerative changes in your ankle, consistent with your psoriatic arthritis. Use the crutches and Timothy wrap to help with getting around. Ask your primary care provider for physical therapy. You can apply ice or heat to help with pain. You are also getting extra [place]. You can take 1 extra tablet in the middle of the day. Take it easy for the next couple days. Rest your ankle. Prescriptions: Hydrocodone/Acetaminophen [[place] 5-325 mg Tablet] 1 tab PO ASDIR PRN #4 tablet PRN Reason:
[2020-09-08 15:19] LABS: PROTHROMBIN TIME 13.4 SEC (11.4-15.4)
[2020-09-08 15:22] LABS: ALKALINE PHOSPHATASE 67 U/L (38-126); ANION GAP 10 (5-19); ASPARTATE AMINO TRANSFERASE 19 U/L (17-59); BILIRUBIN,DIRECT 0.1 mg/dL (0.0-0.4); BILIRUBIN,TOTAL 0.4 mg/dL (0.2-1.3); BLOOD UREA NITROGEN 9 mg/dL (7-20); CALCIUM 9.5 mg/dL (8.4-10.2); CARBON DIOXIDE 26 mmol/L (22-30); CHLORIDE 102 mmol/L (98-107); GLUCOSE 95 mg/dL (75-110); PHOSPHORUS 4.5 mg/dL (2.5-4.5); POTASSIUM 4.2 mmol/L (3.6-5.0); TOTAL PROTEIN 7.2 g/dL (6.3-8.2)
--- NOTE | 2020-09-08 16:10 | RADIOLOGY REPORT (SQ) ---
EXAM DESCRIPTION: FOOT LEFT COMPLETE IMAGES COMPLETED DATE/TIME: 09/08/2020 3:30 pm REASON FOR STUDY: left foot pain; no injury; please eval ankle too COMPARISON: None. NUMBER OF VIEWS: Three views. TECHNIQUE: AP, lateral and oblique radiographic images acquired of the left foot. LIMITATIONS: None. FINDINGS: MINERALIZATION: Normal. BONES: No acute fracture or dislocation. No worrisome bone lesions. JOINTS: No effusions. SOFT TISSUES: No soft tissue swelling. No foreign body. OTHER: Degenerative changes are seen of the tibiotalar and talonavicular joints. IMPRESSION: Degenerative changes of the tibiotalar and talonavicular joints. No evidence of acute o sseous injury. TECHNICAL DOCUMENTATION: JOB ID: [id number] 2010 [employer]- All Rights Reserved Reading location - IP/workstation name: [email or web address]
[2020-09-08] MEDS ORDERED: HYDROCODONE/ACETAMINOPHEN 5-325 MG (6 TAB/ER DISP) PO PRN (16:44)
== END 2020-09-08 17:30 | disposition home or self-care (01) ==
LOC: ER 11:55
DX: L40.50 Arthropathic psoriasis, unspecified (principal); M79.672 Pain in left foot; Z79.899 Other long term (current) drug therapy; Z88.0 Allergy status to penicillin; F17.200 Nicotine dependence, unspecified, uncomplicated; I10 Essential (primary) hypertension; J44.9 Chronic obstructive pulmonary disease, unspecified
CPT/HCPCS: 36415; 80053; 83735; 84100; 85025; 85610; 85730; 93971; 99285